=== PATIENT | female | born 1955 | race Caucasian/White ===

== ENCOUNTER 2020-06-25 07:17 | Outpatient (REF) | payer MEDICARE, MEDICAID, SELFPAY ==
[2020-06-25 08:20] LABS: Basophils Absolute Auto 0.1 X10*3/uL (0.0-0.2); Basophils Percent Auto 0.9 % (0-2); Eosinophils Absolute Auto 0.3 X10*3/uL (0.0-0.4); Eosinophils Percent Auto 4.5 % (0-4); Hematocrit 45.2 % (37-47); Hemoglobin 14.9 g/dl (12.0-16.0); Imm Gran Abs Auto 0.02 X10*3/uL (0.00-0.03); Imm Gran Pct Auto 0.3 % (0.0-0.4); Lymphocytes Absolute Auto 1.7 X10*3/uL (1.2-4.9); MANUAL DIFF FLAG NO; Mean Corpuscular Hemoglobin 30.9 pg (27.0-33.0); Mean Corpuscular Volume 93.8 fL (80-98); Mean Platelet Volume 9.8 fL (9.4-12.3); Monocytes Absolute Auto 0.6 X10*3/uL (0.1-1.2); Monocytes Percent Auto 8.2 % (2-11); Neutrophils Absolute Auto 4.2 X10*3/uL (2.0-8.3); Neutrophils Percent Auto 61.1 % (45-73); Platelet Count 194 X10*3/uL (160-400); Red Blood Count 4.82 X10*6/uL (4.20-5.50); Red Cell Distribution Width 13.1 % (11.0-16.0); White Blood Count 6.9 X10*3/uL (4.8-10.8)
[2020-06-25 08:42] LABS: Alanine Aminotransferase 12 U/L (0-31); Albumin Level 4.4 g/dL (3.5-5.0); Alkaline Phosphatase 68 U/L (39-117); Anion Gap 11 (12-20); Aspartate Amino Transferase 16 U/L (5-31); Bilirubin Total 0.5 mg/dL (0.0-1.0); Blood Urea Nitrogen 11 mg/dL (9-16); Carbon Dioxide 29 mmol/L (22-29); Chloride 103 mmol/L (96-108); Cholesterol 226 mg/dL; Estimated Glomerular Filt Rate > 60; Glucose Fasting 95 mg/dL (60-99); HDL Cholesterol 52 mg/dL; LDL Cholesterol Calculated 161 mg/dl; Potassium 4.4 mmol/l (3.3-5.1); Sodium 139 mmol/L (135-145); Total Protein 6.8 g/dL (6.5-8.0); Triglycerides 67 mg/dL
[2020-06-25 09:04] LABS: Thyroid Stimulating Hormone 0.84 uIU/mL (0.32-4.0); Vitamin D 25-OH Total 27.6 ng/mL (>30)
== END 2020-06-25 07:18 | disposition home or self-care (01) ==
LOC: HO.LAB 07:17
PROVIDERS: PCP Internal Medicine; Visit Provider Internal Medicine
DX: E78.00 Pure hypercholesterolemia, unspecified (principal); F32.9 Major depressive disorder, single episode, unspecified; Z85.118 Personal history of other malignant neoplasm of bronchus and lung; E55.9 Vitamin D deficiency, unspecified
CPT/HCPCS: 36415; 80053; 80061; 82306; 84443; 85025

== ENCOUNTER 2020-10-20 14:45 | Outpatient (REF) | payer MEDICARE, MEDICAID, SELFPAY ==
[2020-10-20 15:24] LABS: Glucose Urine UA NEG (NEG); Leukocyte Esterase Urine NEG (NEG); Nitrite Urine NEG (NEG); PH 5.5 (5.0-8.0); Specific Gravity - Urine <= 1.005 (1.005-1.025); Urine Blood 1+ (NEG); Urine Ketones NEG (NEG); Urine Protein NEG (NEG-TRACE)
[2020-10-20 15:25] LABS: Appearance Urine CLEAR; Color Urine YELLOW
[2020-10-20 15:39] LABS: Bacteria Urine 1+ /LPF; RBC Urine 0-2 /HPF (0); Squamous Epithelial Cell Urine 1+ /LPF; WBC Urine 0 /HPF (0-4)
[2020-10-20 16:00] LABS: Hematocrit 42.2 % (37-47); Mean Corpuscular HGB Conc 33.2 g/dl (31.0-35.0); Mean Corpuscular Hemoglobin 30.8 pg (27.0-33.0); Mean Corpuscular Volume 92.7 fL (80-98); Mean Platelet Volume 9.8 fL (9.4-12.3); Platelet Count 206 X10*3/uL (160-400); Red Blood Count 4.55 X10*6/uL (4.20-5.50); Red Cell Distribution Width 13.7 % (11.0-16.0); White Blood Count 8.2 X10*3/uL (4.8-10.8)
[2020-10-20 16:26] LABS: Anion Gap 13 (12-20); Blood Urea Nitrogen 11 mg/dL (9-16); Calcium 9.5 mg/dL (8.4-10.2); Carbon Dioxide 30 mmol/L (22-29); Chloride 100 mmol/L (96-108); Estimated Glomerular Filt Rate > 60; Glucose Random 88 mg/dL (60-115); Potassium 4.4 mmol/L (3.3-5.1); Sodium 139 mmol/L (135-145)
== END 2020-10-20 14:46 | disposition home or self-care (01) ==
LOC: HO.LAB 14:45
PROVIDERS: PCP Internal Medicine; Visit Provider Internal Medicine
DX: R03.0 Elevated blood-pressure reading, without diagnosis of hypertension (principal)
CPT/HCPCS: 36415; 80048; 81001; 85027

== ENCOUNTER 2022-02-23 12:22 | Outpatient (REF) | payer MEDICARE, MEDICAID, SELFPAY ==
--- NOTE | ~2022-02-23 | MM_ITS ---
EXAMINATION: MM SCREENING DIGITAL BREAST TOMOSYNTHESIS, BILATERAL CLINICAL INFORMATION: Screening. Asymptomatic. The lifetime risk of breast cancer based on the Tyrer-Cuzick Model is 10%. COMPARISON: Mammography: 04/21/2020, 04/16/2019, 04/10/2018 TECHNIQUE: Digital breast tomosynthesis is performed in both the craniocaudal and mediolateral oblique views along with computer-aided detection (CAD). Synthesized 2D images are generated from the tomosynthesis. FINDINGS: There are scattered areas of fibroglandular density (ACR BI-RADS breast composition Category b). There are no significant masses, abnormal calcifications, or other abnormalities. Parenchymal pattern is similar to prior studies. The axilla and skin contours are unremarkable. MM/MM tomosynthesis screening BI IMPRESSION: No mammographic evidence of malignancy. ASSESSMENT: BI-RADS 1: Negative RECOMMENDATION: Routine annual mammography screening. This patient's information was entered into a reminder system with a target due date for their next mammogram.
== END 2022-02-23 12:23 | disposition home or self-care (01) ==
LOC: HO.MAMMO 12:22
PROVIDERS: PCP Internal Medicine; Visit Provider Internal Medicine
DX: Z12.31 Encounter for screening mammogram for malignant neoplasm of breast (principal)
CPT/HCPCS: 77063; 77067

== ENCOUNTER 2022-05-20 06:10 | Outpatient (REF) | payer MEDICARE, MEDICAID, SELFPAY ==
[2022-05-20 06:17] LABS: MANUAL DIFF FLAG NO
[2022-05-20 07:23] LABS: Basophils Absolute Auto 0.1 X10*3/uL (0.0-0.2); Basophils Percent Auto 0.5 % (0-2); Eosinophils Absolute Auto 0.4 X10*3/uL (0.0-0.4); Eosinophils Percent Auto 3.7 % (0-4); Hematocrit 46.1 % (37.0-47.0); Imm Gran Abs Auto 0.02 X10*3/uL (0.00-0.03); Imm Gran Pct Auto 0.2 % (0.0-0.4); Lymphocytes Absolute Auto 2.5 X10*3/uL (1.2-4.9); Lymphocytes Percent Auto 26.3 % (20-40); Mean Corpuscular HGB Conc 34.7 g/dl (31.0-35.0); Mean Corpuscular Volume 92.2 fL (80.0-98.0); Monocytes Absolute Auto 0.8 X10*3/uL (0.1-1.2); Monocytes Percent Auto 8.6 % (2-11); Neutrophils Absolute Auto 5.9 x10*3/uL (2.0-8.3); Neutrophils Percent Auto 60.7 % (45-73); Platelet Count 181 X10*3/uL (160-400); Red Cell Distribution Width 13.6 % (11.0-16.0); White Blood Count 9.7 X10*3/uL (4.8-10.8)
[2022-05-20 07:33] LABS: Appearance Urine Cloudy; Color Urine Yellow; Glucose Urine UA Negative (Negative); Leukocyte Esterase Urine Negative (Negative); Nitrite Urine Negative (Negative); PH 6.5 (5.0-9.0); UMIC TRIGGER UACC YES; Urine Blood Trace (Negative); Urine Ketones Negative (Negative); Urine Protein Negative (Neg-Trace)
[2022-05-20 07:38] LABS: Bacteria Urine None Seen (None Seen); Hyaline Casts Urine 0-2 /LPF (0-2); Squamous Epithelial Cell Urine 0-2 /HPF (0-2); WBC Urine 0-5 /HPF (0-5)
[2022-05-20 07:51] LABS: Alanine Aminotransferase 12 U/L (0-31); Albumin Level 4.5 g/dL (3.5-5.0); Alkaline Phosphatase 69 U/L (39-117); Anion Gap 16 (12-20); Aspartate Amino Transferase 17 U/L (5-31); Bilirubin Total 0.4 mg/dL (0.0-1.0); Blood Urea Nitrogen 13 mg/dL (9-16); Calcium 9.7 mg/dL (8.4-10.2); Carbon Dioxide 29 mmol/L (22-29); Chloride 101 mmol/L (96-108); Cholesterol 302 mg/dL; Estimated Glomerular Filt Rate > 60; Glucose Random 94 mg/dL (60-115); HDL Cholesterol 59 mg/dL; LDL Cholesterol Calculated 225 mg/dl; Potassium 4.5 mmol/L (3.3-5.1); Sodium 141 mmol/L (135-145); Total Protein 7.3 g/dL (6.5-8.0); Triglycerides 90 mg/dL
[2022-05-20 08:11] LABS: Free T4 (Free Thyroxine) 1.07 ng/dL (0.71-1.85); Thyroid Stimulating Hormone 1.85 uIU/mL (0.32-4.0); Vitamin D 25-OH Total 33.6 ng/mL (>30)
== END 2022-05-20 06:11 | disposition home or self-care (01) ==
LOC: HO.LAB 06:10
PROVIDERS: PCP Internal Medicine; Visit Provider Internal Medicine
DX: J44.9 Chronic obstructive pulmonary disease, unspecified (principal); E78.00 Pure hypercholesterolemia, unspecified; R53.81 Other malaise; R53.83 Other fatigue
CPT/HCPCS: 36415; 80053; 80061; 81001; 81003; 82306; 84439; 84443; 85025

== ENCOUNTER 2022-09-24 14:59 | Outpatient (REF) | payer MEDICARE, MEDICAID, SELFPAY ==
[2022-09-24 16:46] LABS: Anion Gap 11 (12-20); Blood Urea Nitrogen 12 mg/dL (9-16); Calcium 9.6 mg/dL (8.4-10.2); Carbon Dioxide 34 mmol/L (22-29); Chloride 98 mmol/L (96-108); Estimated Glomerular Filt Rate > 60; Glucose Random 96 mg/dL (60-115); Potassium 4.5 mmol/L (3.3-5.1); Sodium 138 mmol/L (135-145)
== END 2022-09-24 15:00 | disposition home or self-care (01) ==
LOC: HO.LAB 14:59
PROVIDERS: PCP Internal Medicine; Visit Provider Internal Medicine
DX: I10 Essential (primary) hypertension (principal)
CPT/HCPCS: 36415; 80048

== ENCOUNTER 2022-10-19 07:57 | Day surgery (SDC) | payer MEDICARE, MEDICAID, SELFPAY ==
--- NOTE | 2022-10-18 14:04 | P.CONAN_ITS ---
Documented by User: Kerline Correia NP 10/18/22 14:04 HPI - Anesthesia Eval Consult details Narrative: 67yo F for Colonoscopy PMFSH Past Medical History Medical History Anxiety and depression COPD (chronic obstructive pulmonary disease) HTN (hypertension) Hyperlipidemia IBS (irritable bowel syndrome) Surgical History Surgical History H/O colonoscopy S/P lobectomy of lung Social History Social History Patient Tobacco Use Status: Former Tobacco user Tobacco use type: Cigarette Smoked in Last 30 Days: No Use of substances other than those prescribed or required for medical reasons: No Are you DNR?: No Advance Directives: No Advance Directives Information Provided: Yes Meds Allergies Allergy/AdvReac Type Severity Reaction Status Date / Time No Known Allergies Allergy Verified 10/19/22 08:24 Home Medications Medication Instructions Recorded Confirmed Last Taken Type bupropion HCl 150 mg 24 hr tablet, 150 mg PO DAILY 10/18/22 10/19/22 Unknown History extended release clonazepam 1 mg tablet 1 mg PO TID PRN Anxiety 10/18/22 10/19/22 Unknown History levalbuterol tartrate 45 2 puff inhalation Q4H PRN wheezing 10/18/22 10/19/22 Unknown History mcg/actuation aerosol inhaler lisinopril 10 mg tablet 10 mg PO DAILY 10/18/22 10/19/22 10/19/22 History metoclopramide HCl 10 mg tablet 10 mg PO DAILY PRN Nausea 10/18/22 10/19/22 Unknown History quetiapine 25 mg tablet 10 mg PO DAILY 10/18/22 10/19/22 Unknown History sumatriptan succinate 100 mg tablet 100 mg PO DIRECTED 10/18/22 10/19/22 Unknown History umeclidinium 62.5 mcg/actuation 1 inh inhalation DAILY 10/18/22 10/19/22 10/19/22 History blister powder for inhalation (Incruse Ellipta) Exam Exam Date and Time: October 18, 2022 1404 Pertinent Lab Results Pertinent Lab Results: Laboratory Tests 05/20/22 09/24/22 06:16 15:28 WBC 9.7 Hgb 16.0 Hct 46.1 Plt Count 181 Sodium 138 Potassium 4.5 Chloride 98 Carbon Dioxide 34 H BUN 12 Creatinine 0.72 Assessment and Plan Assessment Anesthesia Assessment: Chart Reviewed Documented by User: Antonina Benitez MD 10/19/22 09:48 [facility] Past Medical History Medical History Anxiety and depression COPD (chronic obstructive pulmonary disease) HTN (hypertension) Hyperlipidemia IBS (irritable bowel syndrome) Family History Family history of problems with anesthesia: No Surgical History Surgical History H/O colonoscopy S/P lobectomy of lung History of Problems with Anesthesia: No Social History Social History Patient Tobacco Use Status: Former Tobacco user Tobacco use type: Cigarette Smoked in Last 30 Days: No Use of substances other than those prescribed or required for medical reasons: No Are you DNR?: No Advance Directives: No Advance Directives Information Provided: Yes Meds Allergies Allergy/AdvReac Type Severity Reaction Status Date / Time No Known Allergies Allergy Verified 10/19/22 08:24 Home Medications Medication Instructions Recorded Confirmed Last Taken Type bupropion HCl 150 mg 24 hr tablet, 150 mg PO DAILY 10/18/22 10/19/22 Unknown History extended release clonazepam 1 mg tablet 1 mg PO TID PRN Anxiety 10/18/22 10/19/22 Unknown History levalbuterol tartrate 45 2 puff inhalation Q4H PRN wheezing 10/18/22 10/19/22 Unknown History mcg/actuation aerosol inhaler lisinopril 10 mg tablet 10 mg PO DAILY 10/18/22 10/19/22 10/19/22 History metoclopramide HCl 10 mg tablet 10 mg PO DAILY PRN Nausea 10/18/22 10/19/22 Unknown History quetiapine 25 mg tablet 10 mg PO DAILY 10/18/22 10/19/22 Unknown History sumatriptan succinate 100 mg tablet 100 mg PO DIRECTED 10/18/22 10/19/22 Unknown History umeclidinium 62.5 mcg/actuation 1 inh inhalation DAILY 10/18/22 10/19/22 10/19/22 History blister powder for inhalation (Incruse Ellipta) Exam Height,Weight and Vital Signs: Height 5 ft 4 in Weight 68.039 kg Vital Signs Temp Pulse Resp BP Pulse Ox O2 Del Method 10/19/22 08:49 98.4 F 75 16 125/76 95 Room Air Airway Mallampati Class: II TM Dist: >3cm Neck ROM: Full Loose/Missing/Broken Teeth: No (Denies broken,loose,missing teeth) Heart: RRR Lungs: CTAB Assessment and Plan Final Anesthetic Review Family History of Problems with Anesthesia: No History of Problems with Anesthesia: No NPO: Yes ASA Class: II Final Preanesthetic Review: No Changes in Pt Med Stat, Meds/Allgs Chart Reviewed, Consent Obtained/Reviewed and Anes Risks/Benef Reviewed Patient Risk: Low Procedure Risk: Low Assessment/Block/Sedation in SS: Assess/Block/Sedation-SS Anesthetic Plan Anesthetic Plan: MAC: Disposition: Standard PACU
--- OUTSIDE RECORDS SUMMARY | 2022-10-19 07:59 | XMS_ITS | Continuity of Care Document ---
Author Name Unknown Organization [facility] Address [address] [place] [address] [address], [address] [place] [address]- Care Team Providers Care Sueding Machine Tender Name Role Phone Alin Ceja MD Primary Care Physician [phone] Encounter [facility] [place] Date(s): 08/30/19 - 11/08/19 [facility] [address] [place] [address], [address] [place] [address]- [facility] Attending Physician: Jennifer Brasher NP Referring Physician: Alin Ceja MD Allergies, Adverse Reactions, Alerts Substance Reaction Severity Status NKA Active Medications KLONopin Tablet = 1 mg, By Mouth, 2 times a day, PRN Anxiety, 0 Refills, Maintenance, 07/01/11 11:17:01 Start Date: 07/01/11 Status: Ordered nicotine 14 mg/24 hr transdermal film, extended release 1 patch, Daily, 0 Refills, Maintenance, 08/04/16 8:36:19 Start Date: 08/04/16 Status: Ordered QUEtiapine 25 mg oral tablet 25 mg, 1, tablet, By Mouth, Daily, # 30 tablet, Refills 0, Tot. Refills 0, Maintenance, 07/01/16 13:16:36, Do Not Route Start Date: 07/01/16 Status: Ordered Spiriva Respimat 2.5 mcg/inh inhalation aerosol 2 puffs, Inhalation, Daily, # 4 Gm, 1 Refills, Maintenance, 07/01/16 14:19:00, Aerosol Start Date: 07/01/16 Status: Ordered Wellbutrin SR 150 mg oral tablet, extended release 1 tablet = 150 mg, By Mouth, Daily, 0 Refills, Maintenance Start Date: 07/01/11 Status: Ordered Xopenex HFA 45 mcg/inh inhalation aerosol 1 puffs, Inhalation, Every 6 hours, PRN Wheezing/Shortness of Breath, # 15 Gm, 1 Refills, Maintenance, 07/01/16 14:18:00, Aerosol Start Date: 07/01/16 Status: Ordered Problem List Condition Effective Dates Status Health Status Inform ant COPD (chronic obstructive pu lmonary disease)(Confirmed) Active Former smoker(Confirmed) Active Hypertension(Confirmed) Active Anxiety and depression(Confirmed) Active Social History Social History Type Response Smoking Status Former smoker; Type: Cigarettes; Other: quit smoking 05/2016, used to smoke 3/4 ppd x's 20+ yrs; entered on: 02/24/17 Sex
--- OUTSIDE RECORDS SUMMARY | 2022-10-19 07:59 | XMS_ITS | Continuity of Care Document ---
Author Name Unknown Organization [facility] Address Unknown Care Team Providers Care Model And Pattern Supervisor Name Role Phone Alin Ceja MD Primary Care Physician [place] [facility] [place] - 02/04/22 [facility] Allergies, Adverse Reactions, Alerts No Known Allergies Medications KLONopin Tablet = 1 mg, By [...]
--- OUTSIDE RECORDS SUMMARY | 2022-10-19 07:59 | XMS_ITS | Continuity of Care Document ---
Author Name Unknown Organization [facility] Address [address] [place] [address]- Care Team Providers Care Pharmacy Resident Name Role Phone Alin Ceja MD Primary Care Physician [phone] Encounter [facility] [place] Date(s): 12/07/19 - 02/07/[address] [address]- [facility] Attending Physician: Jennifer Brasher NP Admitting Physician: Jennifer Brasher NP Referring Physician: Jennifer Brasher NP Allergies, Adverse Reactions, Alerts Substance Reaction Severity [...]
--- OUTSIDE RECORDS SUMMARY | 2022-10-19 07:59 | XMS_ITS | Continuity of Care Document ---
Author Name Unknown Organization [facility] Address [address] [place] [address]- Care Team Providers Care Wet Machine Tender Name Role Phone Alin Ceja MD Primary Care Physician [phone] [place] [facility] [place]13/[place] - 11/02/[address] [address]- [facility] Attending Physician: Jennifer Brasher NP Admitting Physician: [...]
--- OUTSIDE RECORDS SUMMARY | 2022-10-19 07:59 | XMS_ITS | Continuity of Care Document ---
Author Name Unknown Organization [facility] Address Unknown Care Team Providers Care Mba Internship Name Role Phone Alin Ceja MD Primary Care Physician [phone] Encounter [facility] [place] Date(s): 12/23/21 - 01/22/22 [facility] Allergies, Adverse Reactions, Alerts No [...]
--- OUTSIDE RECORDS SUMMARY | 2022-10-19 07:59 | XMS_ITS | Continuity of Care Document ---
Author Name Unknown Organization [facility] Address [address] [place] [address] [address], [address] [place] [address]- Care Team Providers Care Certifier Name Role Phone Marcial BUNCH, Alin Primary Care Physician Encounter [facility] [place] Date(s): 01/10/20 - 01/17/20 [facility] [address] [place] [address] Drive, [address] [place] [address]- [facility] Attending Physician: Jennifer Brasher NP Allergies, Adverse Reactions, [...]
--- OUTSIDE RECORDS SUMMARY | 2022-10-19 07:59 | XMS_ITS ---
Author Name Lambert Preston Jr Address [address] [place] [address] Organization [facility] Address [address] [place] [address] Care Team Providers Care Physician Office Assistant Name Role Phone Lambert Preston Jr Unavailable PROBLEMS Type Condition ICD9-CM Code HMS44-BO Code Onset Dates Condition Status SNOMED Code Problem Irritable bowel syndrome, unspecified type K58.9 Active 44021110 Problem Colon cancer screening Z12.11 Active 197777733 ALLERGIES No Known Allergies ENCOUNTERS Encounter Location Date Diagnosis [facility] [place] [address] [place], [place] [id number] Sep, [facility] [address] [place] [id number] Aug, Colon cancer screening Z12.11 and Irritable bowel syndrome, unspecified type K58.9 IMMUNIZATIONS No Known Immunizations SOCIAL HISTORY Qualifiers Date Never Smoker REASON FOR REFERRAL FUNCTIONAL STATUS PLAN OF CARE Activity Details VITAL SIGNS Weight 152 lbs 2022-09-06 Height 64 in 2022-09-06 BMI 26.09 kg/m2 2022-09-06 Temperature 99.6 degrees Fahrenheit Blood pressure systolic 000 mm Hg Blood pressure diastolic 00 mm Hg 2022-08 MEDICATIONS Medication Instructions Dosage Frequency Start Date End Date Duration Status KlonoPIN 1 MG Orally Once a day 1 tablet 24h Active Wellbutrin SR 150 MG Orally Once a day 1 tablet in the morning 24h 30 day(s) Active clonazePAM 1 MG null Diagnosis Unavailable 30 Active QUEtiapine Fumarate 25 MG null Diagnosis Unavailable 30 Active SUMAtriptan Succinate 100 MG null Diagnosis Unavailable 30 Active Incruse Ellipta 62.5 MCG/ACT Inhalation Once a day 1 puff 24h Aug, Active MiraLax (colon prep) 8.3 ounce ((238) grams orally begin at 5:00 p.m. the day before the procedure mixed with Gatorade or Crystal Light Aug, 1 day Active SEROquel 25 MG Orally Once a day 1 tablet at bedtime 24h 30 day(s) Active Metoclopramide HCl 10 MG 30 Active Lisinopril 10 MG Orally Once a day 1 tablet 24h Aug, 30 day(s) Active PROCEDURES Procedure Date Ordered Result Body Site PATIENT NOT ELIG D/T ACTIVE DX HTN Sep 06, 2022 Pt scrn tbco id as non user Sep 06, 2022 DOC MEDS VERIFIED W/PT OR RE Sep 06, 2022 COLORECTAL CA SCREEN DOC REV Sep 06, 2022 RESULTS No Results REASON FOR VISIT screening, Patient presents today for a SCREENING COLON Insurance Providers Health Insurance Type Health Plan Insurance Address Health Plan Insurance Phone Health Plan Insurance Name Health Plan Coverage Dates Member ID Patient Relationship to Subscriber Patient Address Patient Phone Patient Name Patient Date of Subscriber ID Subscriber Name Subscriber Date of Group No MED[place] OF [place] [address] [place] [address] MEDICAID OF [place] [facility] ELYSE DORAN [id number] [place]ARE OF [place] [address] [place] [address] MED[place]ARE OF [place] self ELYSE DORAN [id number]
--- OUTSIDE RECORDS SUMMARY | 2022-10-19 07:59 | XMS_ITS | Continuity of Care Document ---
Author Name Unknown Organization [facility] Address [address] [place] [address] [address], [address] [place] [address]- Care Team Providers Care Telecommunicator Name Role Phone Alin Ceja MD Primary Care Physician [place] [facility] [place] 02/09/20 [facility] [address] [place] [address], [address] [place] [address]- [facility] Attending Physician: Steven Doyle Admitting Physician: AdmSteven olivo Referring Physician: AdmtrSteven Allergies, Adverse Reactions, Alerts Substance Reaction Severity [...]
--- OUTSIDE RECORDS SUMMARY | 2022-10-19 07:59 | XMS_ITS | Continuity of Care Document ---
Author Name Unknown Organization [facility] Address [address] [facility] [address] [place] [address]- Care Team Providers Care Snack Steward Name Role Phone Marcial BUNCH, Alin Primary Care Physician [phone] Encounter 01/08/20 - 01/15/20 [facility] [address], [facility] [address] [place] [address]- [phone] Attending Physician: Jennifer Brasher NP Admitting Physician: [...]
[2022-10-19 08:22] VITALS: BMI 25.7
[2022-10-19 08:49] VITALS: BP 125/76; PULSE 75; RESP 16; TEMP 36.9; O2SAT 95
[2022-10-19] MEDS: Lactated Ringers 1,000 ML 100 ML IVCONT (09:01)
--- NOTE | 2022-10-19 10:15 | MHC.SHP ---
Pre-Procedural Eval Section A Date of Service: 10/19/22 Section B Chief Complaint: screening Details of Present Illness: see H&P no changes Relevant Family History (Specify if Yes): No Relevant Social History: None Present Medications: see Short Stay Collaborative assessment Medical History: No relevant PMH History of Previous Operations: No relevant previous surgery Allergies: Allergies Allergy/AdvReac Type Severity Reaction Status Date / Time No Known Allergies Allergy Verified 10/19/22 08:24 Review of Systems Sugical H&P ROS: Negative: Constitution, Cardiovascular, Respiratory, Neurological, Psychiatric, Hem-Onc, Allergic/Immunologic, Gastrointestinal, Genitourinary, Musculoskeletal, Integumentary, Endocrine and Eyes/Ears/Nose/Throat Exam Surgical H&P Exam: Normal: HEENT, Normal: Heart, Normal: Lungs, Normal: Extremities, Normal: Abdomen, Normal: Skin and Normal: Neurological Plan Diagnosis/Plan: Unchanged I have reviewed the history and physical and performed a pertinent physical examination on my patient. No changes have occurred unless specified. Time Spent With Patient Time: Total time managing care of this patient today ____ minutes.
[2022-10-19 10:17] VITALS: BP 104/63; PULSE 81; RESP 16; TEMP 36.4; O2SAT 97
[2022-10-19 10:33] VITALS: BP 145/80; PULSE 76; RESP 18; TEMP 36.1; O2SAT 98
--- NOTE | 2022-10-19 10:55 | OP_ITS ---
DATE OF SERVICE: 10/19/2022 SURGEON: Lambert Preston MD INDICATIONS: Colon cancer screening. PREOPERATIVE DIAGNOSIS: POSTOPERATIVE DIAGNOSIS: PROCEDURE PERFORMED: Colonoscopy to the terminal ileum. ESTIMATED BLOOD LOSS: COMPLICATIONS: ANESTHESIA: Monitored anesthesia care. ASSISTANTS: SPECIMENS: DESCRIPTION OF PROCEDURE: A history and physical performed. The risks and benefits of the procedure were explained to the patient. Informed consent was obtained. The patient placed in the left lateral decubitus position. The procedure was performed on 10/19/2022. A digital rectal exam was performed and found to be normal. The Olympus pediatric video colonoscope was introduced into the rectum and advanced to the cecum without difficulty. The cecum was identified by transillumination, palpation, and identification of the ileocecal valve. Examination was performed. The scope was removed. She tolerated the procedure well and was taken to recovery room in stable condition. FINDINGS: The terminal ileum was examined and appeared normal. The visualized colonic mucosa was normal. The quality of prep was good. Two polyps were identified and removed with biopsy forceps. Both were less than 5 mm. These were located at 35 cm and in the rectum. Retroflexed examination showed some mucosal changes suspicious for possible condyloma. Biopsies were obtained from the abnormal tissue. This measured approximately 5-7 mm. IMPRESSION: Colon polyps. RECOMMENDATION: Follow up the biopsy results. MD JUDE Lezama/CHANTELLE / [id number]
== END 2022-10-19 11:01 | disposition home or self-care (01) ==
PROVIDERS: PCP Internal Medicine; Visit Provider Internal Medicine Gastroenterology
PROC: 0DJD8ZZ Inspection of Lower Intestinal Tract, Via Natural or Artificial Opening Endoscopic (ICD-10-PCS; CPT 45378; principal; 2022-10-19 09:20)
DX: Z12.11 Encounter for screening for malignant neoplasm of colon (principal); K63.5 Polyp of colon; K62.1 Rectal polyp; K62.82 Dysplasia of anus; K58.9 Irritable bowel syndrome, unspecified; I10 Essential (primary) hypertension; J44.9 Chronic obstructive pulmonary disease, unspecified; E78.5 Hyperlipidemia, unspecified; F41.8 Other specified anxiety disorders; Z79.51 Long term (current) use of inhaled steroids; Z79.899 Other long term (current) drug therapy; Z87.891 Personal history of nicotine dependence
CPT/HCPCS: 45380; 88305; 88342; 88360

== ENCOUNTER → 2022-11-10 14:13 | Outpatient (BNVA) | payer MEDICARE, MEDICAID, SELFPAY | PROVIDERS: PCP Internal Medicine; Referring Provider Internal Medicine Gastroenterology; Visit Provider Surgery | DX: K62.82 Dysplasia of anus (principal) | CPT/HCPCS: 46600; 99202 ==

== ENCOUNTER 2023-03-14 13:13 | Outpatient (REF) | payer MEDICARE, MEDICAID, SELFPAY | END 2023-03-14 13:14 | disposition home or self-care (01) | LOC: HO.MAMMO 13:13 | PROVIDERS: PCP Internal Medicine; Visit Provider Internal Medicine | DX: Z12.31 Encounter for screening mammogram for malignant neoplasm of breast (principal) | CPT/HCPCS: 77063; 77067 ==

== ENCOUNTER → 2023-03-14 13:30 | Outpatient (BNV) | payer MEDICARE, MEDICAID, SELFPAY | PROVIDERS: PCP Internal Medicine; Visit Provider Radiology Diagnostic Radiology | DX: Z12.31 Encounter for screening mammogram for malignant neoplasm of breast (principal) | CPT/HCPCS: 77063; 77067 ==

== ENCOUNTER 2023-05-09 12:44 | Outpatient (AMB) | payer MEDICARE, MEDICAID, SELFPAY ==
[2023-05-09 12:49] VITALS: BP 126/88; PULSE 78; BMI 26.9
--- NOTE | 2023-05-09 12:49 | A.OFFVIS_ITS ---
Intake Vital Signs 05/09/23 12:49 Height 5 ft 4 in Weight 157 lb BMI 26.9 BP 126/88 Blood Pressure Location Rt brachial Position Sitting Pulse 78 Intake Visit Reasons: 6 month follwo up, anal condyloma Intake Note: This patient presents for a six month follow-up assessment for anal condyloma. Patient c/o; reports no changes or complaints at this time. 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 Preston. I had seen her last October,. Anoscopy had shown what appeared to be a very small papilloma in the anal canal but she did not want to proceed with excision at that time and wanted to be re- examined for surveillance She currently denies significant complaints. She denies any bleeding or pain. Feels well overall. [facility] Medical History AIN grade I HTN (hypertension) Hyperlipidemia IBS (irritable bowel syndrome) Anxiety and depression COPD (chronic obstructive pulmonary disease) Surgical History S/P lobectomy of lung H/O colonoscopy Social History Patient Tobacco Use Status: Former Tobacco user Tobacco use type: Cigarette Review of Systems Const Denies chills and Denies fever(s) Card Denies chest pain, Denies dyspnea and Denies dyspnea on exertion Resp Denies cough, Denies dyspnea and Denies dyspnea on exertion GI Denies hematochezia and Denies change in bowel habits Denies hematuria Musc Denies back pain and Denies limited range of motion Neuro Denies focal weakness and Denies convulsions Psych Denies depression and Denies mood swings Physical Exam Vital Signs: Last Vital Signs Pulse 78 05/09/23 12:49 BP 126/88 05/09/23 12:49 BMI result Body Mass Index 26.9 Const General: comfortable and no acute distress Resp Effort & Inspection: normal respiratory effort Cardio Rate: regular rate GI Other: Rectal exam shows no perianal lesions, anoscopy done Palpation (GI): Soft to palpation and nontender Office Procedures Anoscopy She was in mirela-knife position. The anoscope was gently inserted. A full examination of the anal canal was done. She did have small internal and external hemorrhoidal columns. On the right side of the anal canal just at the level of the dentate line was note of 2 small papillomatous appearing lesions, each about 3-4 mm in size. I cauterized both of these using silver nitrate sticks. There were no other lesions. 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 I was able to cauterize these with silver nitrate sticks as described above. I told her that I will see her again in the office in about 6 months to examine her and repeat her anoscopy. She understands the plan as above. She says that she would like to hold off on any exam under anesthesia in the OR as best as possible. Coding Level of Care Code Est Pt Level 3 (36887) Diagnoses AIN grade I K62.82 CPT Codes Details - CPT: 16420-Dulrecpu ([id number]) Skin Cauter - Destruction: 22026- Chemical Cautery, Granulation Tissue ([id number])
== END 2023-05-09 13:03 | disposition home or self-care (01) ==
PROVIDERS: PCP Internal Medicine; Visit Provider Surgery
DX: K62.82 Dysplasia of anus (principal); K62.9 Disease of anus and rectum, unspecified
CPT/HCPCS: 17250; 46600; 99213

== ENCOUNTER → 2023-05-09 12:44 | Outpatient (BNVA) | payer MEDICARE, MEDICAID, SELFPAY | PROVIDERS: PCP Internal Medicine; Visit Provider Surgery | DX: K62.82 Dysplasia of anus (principal) | CPT/HCPCS: 17250; 46600; 99212 ==

== ENCOUNTER 2023-05-25 06:53 | Outpatient (REF) | payer MEDICARE, MEDICAID, SELFPAY ==
[2023-05-25 07:08] LABS: MANUAL DIFF FLAG NO
[2023-05-25 08:15] LABS: Basophils Absolute Auto 0.1 X10*3/uL (0.0-0.2); Eosinophils Absolute Auto 0.3 X10*3/uL (0.0-0.4); Eosinophils Percent Auto 3.8 % (0-4); Hematocrit 49.4 % (37.0-47.0); Hemoglobin 16.3 g/dl (12.0-16.0); Imm Gran Abs Auto 0.01 X10*3/uL (0.00-0.03); Imm Gran Pct Auto 0.1 % (0.0-0.4); Lymphocytes Absolute Auto 1.9 X10*3/uL (1.2-4.9); Lymphocytes Percent Auto 25.7 % (20-40); Mean Corpuscular Hemoglobin 30.8 pg (27.0-33.0); Mean Corpuscular Volume 93.4 fL (80.0-98.0); Mean Platelet Volume 9.6 fL (9.4-12.3); Monocytes Absolute Auto 0.6 X10*3/uL (0.1-1.2); Monocytes Percent Auto 8.3 % (2-11); Neutrophils Absolute Auto 4.5 x10*3/uL (2.0-8.3); Neutrophils Percent Auto 61.1 % (45-73); Platelet Count 280 X10*3/uL (160-400); Red Blood Count 5.29 X10*6/uL (4.20-5.50); Red Cell Distribution Width 12.7 % (11.0-16.0); White Blood Count 7.3 X10*3/uL (4.8-10.8)
[2023-05-25 08:22] LABS: Appearance Urine Clear; Color Urine Yellow; Glucose Urine UA Negative (Negative); Leukocyte Esterase Urine Negative (Negative); Nitrite Urine Negative (Negative); Urine Blood Negative (Negative); Urine Ketones Negative (Negative); Urine Protein Negative (Neg-Trace)
[2023-05-25 08:25] LABS: Bacteria Urine None Seen (None Seen); Hyaline Casts Urine 0-2 /LPF (0-2); Squamous Epithelial Cell Urine 0-2 /HPF (0-2); WBC Urine 0-5 /HPF (0-5)
[2023-05-25 08:59] LABS: Estimated Average Glucose 97 mg/dL
[2023-05-25 09:00] LABS: Alanine Aminotransferase 9 U/L (0-31); Albumin Level 4.2 g/dL (3.5-5.0); Alkaline Phosphatase 86 U/L (39-117); Anion Gap 13 (12-20); Aspartate Amino Transferase 14 U/L (5-31); Bilirubin Total 0.2 mg/dL (0.0-1.0); Blood Urea Nitrogen 5 mg/dL (9-16); Carbon Dioxide 31 mmol/L (22-29); Chloride 99 mmol/L (96-108); Cholesterol 248 mg/dL (<200); Estimated Glomerular Filt Rate > 60; Glucose Random 97 mg/dL (60-115); HDL Cholesterol 45 mg/dL (>40); LDL Cholesterol Calculated 181 mg/dL (<100); Potassium 4.3 mmol/L (3.3-5.1); Sodium 139 mmol/L (135-145); Total Protein 7.7 g/dL (6.5-8.0); Triglycerides 110 mg/dL (<150)
== END 2023-05-25 06:54 | disposition home or self-care (01) ==
LOC: HO.LAB 06:53
PROVIDERS: PCP Internal Medicine; Visit Provider Internal Medicine
DX: E78.00 Pure hypercholesterolemia, unspecified (principal); I10 Essential (primary) hypertension; R35.1 Nocturia; R73.01 Impaired fasting glucose
CPT/HCPCS: 36415; 80053; 80061; 81001; 83036; 84443; 85025

== ENCOUNTER 2023-10-11 13:35 | Outpatient (AMB) | payer MEDICARE, MEDICAID, SELFPAY ==
--- NOTE | 2023-10-11 13:39 | MHC.OFFWIV ---
Intake Vital Signs 10/11/23 13:40 Height 5 ft 4 in Weight 156 lb BMI 26.8 BP 144/88 H Blood Pressure Location Lt brachial Position Sitting Pulse 88 Pulse Source Pulse Oximeter Temp 98.2 F Temp Source Oral Pulse Oximetry (%) 94 Oxygen Delivery Method Room Air Intake Visit Reasons: EP Sinus infection (lobby) Intake Note: pt is here for green mucus drainage and sinus pressure and pain with a cough for about 3 days Patient Tobacco Use Status: Former Tobacco user Allergies No Known Allergies Allergy (Verified 10/11/23 13:43) HPI EP Sinus infection (lobby) HPI Details Patient presents for a sick visit. Reporting symptoms of sinus congestion, sore throat and difficulty swallowing. Low-grade fever. No family member is sick. No recent travel. Patient reports symptoms of malaise and fatigue. [facility] Medical History AIN grade I HTN (hypertension) Hyperlipidemia IBS (irritable bowel syndrome) Anxiety and depression COPD (chronic obstructive pulmonary disease) Surgical History S/P lobectomy of lung H/O colonoscopy Social History Patient Tobacco Use Status: Former Tobacco user Tobacco use type: Cigarette Physical Exam Vital Signs: Last Vital Signs Temp 98.2 F 10/11/23 13:40 Pulse 88 10/11/23 13:40 BP 144/88 H 10/11/23 13:40 Pulse Ox 94 10/11/23 13:40 Oxygen Delivery Method Room Air 10/11/23 13:40 BMI result Body Mass Index 26.8 Const General: cooperative and healthy appearing Nutritional Appearance: well nourished Orientation/consciousness: patient oriented x3 Limitations: no limitations HEENT Head: Yes normal to inspection Eyes General: appearance normal, both eyes and all related structures Neck Neck: Yes normal visual inspection Chest Chest palpation & inspection: normal palpation of entire chest wall Resp Effort & Inspection: normal respiratory effort Neuro General: patient oriented x3 Assessment & Plan Assessment & Plan (1) Upper respiratory tract infection: Code(s): J06.9 - Acute upper respiratory infection, unspecified Plan: Antibiotics ordered. Increase fluid intake. Tylenol for aches and pains. If symptoms worsen, follow-up here for a recheck. Medications: New azithromycin take 500 mg today (day 1), then 250 mg for 4 days (days 2-5) PO 6 tabs 0RF prednisone 60 mg (3 x 20 mg) PO DAILY 9 tabs 0RF Coding Level of Care Code Est Pt Level 3 (87688) Diagnoses Upper respiratory tract infection J06.9
[2023-10-11 13:40] VITALS: BP 144/88; PULSE 88; TEMP 36.8; O2SAT 94; BMI 26.8
== END 2023-10-11 14:48 | disposition home or self-care (01) ==
PROVIDERS: PCP Internal Medicine; Visit Provider Internal Medicine
DX: J06.9 Acute upper respiratory infection, unspecified (principal)
CPT/HCPCS: 99213

== ENCOUNTER 2023-11-09 12:17 | Outpatient (REF) | payer MEDICARE, MEDICAID, SELFPAY ==
[2023-11-09 12:30] LABS: MANUAL DIFF FLAG NO
[2023-11-09 13:31] LABS: Basophils Absolute Auto 0.1 X10*3/uL (0.0-0.2); Basophils Percent Auto 0.7 % (0-2); Eosinophils Absolute Auto 0.4 X10*3/uL (0.0-0.4); Eosinophils Percent Auto 4.8 % (0-4); Hemoglobin 14.9 g/dl (12.0-16.0); Imm Gran Abs Auto 0.03 X10*3/uL (0.00-0.03); Imm Gran Pct Auto 0.4 % (0.0-0.4); Lymphocytes Absolute Auto 2.5 X10*3/uL (1.2-4.9); Mean Corpuscular HGB Conc 33.1 g/dl (31.0-35.0); Mean Corpuscular Hemoglobin 30.5 pg (27.0-33.0); Mean Corpuscular Volume 92.2 fL (80.0-98.0); Monocytes Absolute Auto 0.8 X10*3/uL (0.1-1.2); Monocytes Percent Auto 9.5 % (2-11); Neutrophils Absolute Auto 4.8 x10*3/uL (2.0-8.3); Neutrophils Percent Auto 55.6 % (45-73); Platelet Count 175 X10*3/uL (160-400); Red Blood Count 4.88 X10*6/uL (4.20-5.50); Red Cell Distribution Width 13.7 % (11.0-16.0); White Blood Count 8.5 X10*3/uL (4.8-10.8)
[2023-11-09 14:15] LABS: Alanine Aminotransferase 16 U/L (0-31); Albumin Level 4.1 g/dL (3.5-5.0); Alkaline Phosphatase 74 U/L (39-117); Anion Gap 10 (12-20); Aspartate Amino Transferase 18 U/L (5-31); Bilirubin Total 0.4 mg/dL (0.0-1.0); Blood Urea Nitrogen 10 mg/dL (9-16); Calcium 9.7 mg/dL (8.4-10.2); Carbon Dioxide 32 mmol/L (22-29); Chloride 100 mmol/L (96-108); Cholesterol 225 mg/dL (<200); Estimated Glomerular Filt Rate > 60; Glucose Random 95 mg/dL (60-115); HDL Cholesterol 48 mg/dL (>40); LDL Cholesterol Calculated 160 mg/dL (<100); Potassium 3.8 mmol/L (3.3-5.1); Sodium 138 mmol/L (135-145); Total Protein 6.9 g/dL (6.5-8.0); Triglycerides 89 mg/dL (<150)
[2023-11-09 14:33] LABS: Thyroid Stimulating Hormone 1.25 uIU/mL (0.32-4.0)
== END 2023-11-09 12:18 | disposition home or self-care (01) ==
LOC: HO.LAB 12:17
PROVIDERS: PCP Internal Medicine; Visit Provider Internal Medicine
DX: E78.00 Pure hypercholesterolemia, unspecified (principal); I10 Essential (primary) hypertension; K62.82 Dysplasia of anus
CPT/HCPCS: 36415; 80053; 80061; 84443; 85025; 99212

== ENCOUNTER 2023-11-09 12:36 | Outpatient (AMB) | payer MEDICARE, MEDICAID, SELFPAY ==
--- NOTE | 2023-11-09 12:42 | A.OFFVIS_ITS ---
Intake Vital Signs 11/09/23 12:49 Height 5 ft 4 in Intake Visit Reasons: 6 month follwo up, anal condyloma Intake Note: This patient presents for a six month follow-up , anal condyloma. Pt c/o; reports no complaints. 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 Preston. I had seen her last October,. She is here for surveillance for this. I had last seen her in the office 6 months ago. She currently denies significant complaints. She denies any bleeding or pain. She feels well overall. She does complain of chronic constipation and says that she has irritation of her anus when this happens. [facility] Medical History AIN grade I HTN (hypertension) Hyperlipidemia IBS (irritable bowel syndrome) Anxiety and depression COPD (chronic obstructive pulmonary disease) Surgical History S/P lobectomy of lung H/O colonoscopy Social History Patient Tobacco Use Status: Former Tobacco user Tobacco use type: Cigarette Review of Systems Const Denies chills and Denies fever(s) Card Denies chest pain, Denies dyspnea and Denies dyspnea on exertion Resp Denies cough, Denies dyspnea and Denies dyspnea on exertion GI Denies hematochezia and Denies change in bowel habits Denies hematuria Musc Denies back pain and Denies limited range of motion Neuro Denies focal weakness and Denies convulsions Psych Denies depression and Denies mood swings Physical Exam Const General: comfortable and no acute distress Orientation/consciousness: patient oriented x3 Neck Neck: Yes no lymphadenopathy Resp Auscultation: clear to auscultation bilaterally Cardio Rhythm: regular rhythm GI Other: No perianal lesions rectal exam Palpation (GI): Soft to palpation, nontender and no guarding Neuro General: patient oriented x3 Assessment & Plan Assessment & Plan (1) AIN grade I: Code(s): K62.82 - Dysplasia of anus Plan: Follow-up exam today including anoscopy does not reveal any recurrent lesion. She denies any complaints at this time with regards to her anus. She does admit to being constipated. I will send her prescription for Metamucil. I will see her again in the office in about 6 months and continue with surveillance anoscopy. Coding Level of Care Code Est Pt Level 3 (80466) Diagnoses AIN grade I K62.82
== END 2023-11-09 13:18 | disposition home or self-care (01) ==
PROVIDERS: PCP Internal Medicine; Visit Provider Surgery
DX: K62.82 Dysplasia of anus (principal)
CPT/HCPCS: 99213

== ENCOUNTER 2024-01-12 10:51 | Outpatient (REF) | payer MEDICARE, MEDICAID, SELFPAY ==
[2024-01-12 10:07] VITALS: PULSE 78; RESP 16; O2SAT 94
--- NOTE | 2024-01-12 16:10 | PFT_ITS ---
Flows: FEV1: 48 % of predicted at 1.11 L FVC: 84 % of predicted at 2.48 L FEV1/FVC: 45 % Bronchodilator response: Absent Volumes: Total lung capacity: 100 % of predicted at 5.02 L Residual volume: 137 % of predicted at 2.57 L Slow vital capacity: 78 % of predicted at 2.45 L Expiratory reserve volume: 140 % of predicted at 1.06 L Diffusion capacity: Moderately decreased Impression: Severe obstructive ventilatory defect with no bronchodilator response. Increased residual volume suggests air trapping. Decreased diffusion capacity suggests emphysema. MTDD
== END 2024-01-12 10:52 | disposition home or self-care (01) ==
LOC: HO.RESP 10:51
PROVIDERS: PCP Internal Medicine; Visit Provider Internal Medicine
DX: J44.9 Chronic obstructive pulmonary disease, unspecified (principal); R06.09 Other forms of dyspnea
CPT/HCPCS: 94010; 94640; 94727; 94729

== ENCOUNTER → 2024-01-12 16:10 | Outpatient (BNV) | payer MEDICARE, MEDICAID, SELFPAY | PROVIDERS: PCP Internal Medicine; Visit Provider Internal Medicine Pulmonary Disease | DX: J44.9 Chronic obstructive pulmonary disease, unspecified (principal) | CPT/HCPCS: 94060; 94727; 94729 ==

== ENCOUNTER 2024-03-19 12:49 | Outpatient (REF) | payer MEDICARE, MEDICAID, SELFPAY ==
--- NOTE | ~2024-03-19 | MM_ITS ---
EXAMINATION: MM SCREENING DIGITAL BREAST TOMOSYNTHESIS, BILATERAL CLINICAL INFORMATION: Screening. Asymptomatic. COMPARISON: Mammography: Comparison is made with available priors TECHNIQUE: Digital breast tomosynthesis is performed in both the craniocaudal and mediolateral oblique views along with computer-aided detection (CAD). Synthesized 2D images are generated from the tomosynthesis. FINDINGS: The breasts are heterogeneously dense, which may obscure small masses (ACR BI-RADS breast composition Category c). There are no significant masses, abnormal calcifications, or other abnormalities. MM/MM tomosynthesis screening BI IMPRESSION: No mammographic evidence of malignancy. ASSESSMENT: BI-RADS BI-RADS 1 - Negative RECOMMENDATION: Routine annual mammography screening. 1 year F/U This examination should not preclude the clinical evaluation of a suspicious palpable abnormality. This patient's information was entered into a reminder system with a target due date for their next mammogram. Electronically signed by: Donita Dejesus DO 04/13/2024 12:13 PM EDT
== END 2024-03-19 12:50 | disposition home or self-care (01) ==
LOC: HO.MAMMO 12:49
PROVIDERS: PCP Internal Medicine; Visit Provider Internal Medicine
DX: Z12.31 Encounter for screening mammogram for malignant neoplasm of breast (principal)
CPT/HCPCS: 77063; 77067

== ENCOUNTER → 2024-03-19 13:00 | Outpatient (BNV) | payer MEDICARE, MEDICAID, SELFPAY | PROVIDERS: PCP Internal Medicine; Visit Provider Internal Medicine | DX: Z12.31 Encounter for screening mammogram for malignant neoplasm of breast (principal) | CPT/HCPCS: 77063; 77067 ==

== ENCOUNTER 2024-03-23 10:27 | Outpatient (AMB) | payer MEDICARE, MEDICAID, SELFPAY ==
[2024-03-23 10:31] VITALS: BP 168/90; PULSE 79; O2SAT 96; BMI 26.1
--- NOTE | 2024-03-23 10:31 | A.OFFVIS_ITS ---
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 Patient describes dyspnea on exertion when doing shopping. Denies prior personal or family history of lung disease. She denies exposure to industrial dusts. Patient has been using Incruse and level butyrate all MDI with suboptimal control of her symptoms. She does have a history of ?LLL in 2016 for ?malignant nodules and is currently followed by [facility] lung cancer screening program. [facility] Medical History (Updated 03/23/24 @ 11:29 by Dom Frost MD) AIN grade I HTN (hypertension) Hyperlipidemia IBS (irritable bowel syndrome) Anxiety and depression COPD (chronic obstructive pulmonary disease) Surgical History S/P lobectomy of lung H/O colonoscopy Social History (Updated 03/23/24 @ 10:36 by PRISCILLA Winchester) Patient Tobacco Use Status: Current everyday Tobacco user Tobacco use type: Cigarette Cigarette Packs Per Day: 0.5 Cigarettes Per Day: 10 Review of Systems Const Denies daytime sleepiness, Denies excessive sweating, Denies fatigue, Denies fever(s), Denies lethargy, Denies malaise, Denies night sweats, Denies snoring and Denies weight loss Eyes Denies blurry vision and Denies itchy eyes ENT Denies nasal congestion, Denies post nasal drip, Denies sinus pain, Denies sinus pressure and Denies other ( Thrush) Card Denies chest pain, Denies pedal edema, Denies dyspnea, Reports dyspnea on exertion, Denies orthopnea and Denies paroxysmal nocturnal dyspnea Resp Denies cough, Denies hemoptysis, Denies excessive phlegm production, Denies dyspnea, Reports dyspnea on exertion, Denies snoring and Denies wheezing GI Denies abdominal pain and Denies heartburn Musc Denies myalgias, Denies arthralgias and Denies joint swelling Skin/Breast Denies rash Neuro Denies memory loss and Denies seizure-like activity Psych Denies abnormal sleep pattern, Denies anxiety and Denies memory loss Endo Denies excessive sweating, Denies fatigue and Denies heat intolerance Zac/Lymph Denies easy bruising Aller/Immun Denies itchy eyes, Denies seasonal rhinorrhea and Denies wheezing Physical Exam Vital Signs: Last Vital Signs Pulse 79 03/23/24 10:31 BP 168/90 H 03/23/24 10:31 Pulse Ox 96 03/23/24 10:31 Oxygen Delivery Method Room Air 03/23/24 10:31 BMI result Body Mass Index 26.1 Const General: no acute distress and alert Nutritional Appearance: not obese Orientation/consciousness: Other orientation findings ( oriented) HEENT Head: Yes atraumatic Eyes General: appearance normal, both eyes and all related structures Sclerae: sclerae normal EOM: EOMs intact bilaterally Neck Neck: Yes supple Lymphatic: no lymphadenopathy noted Resp Effort & Inspection: normal respiratory effort and no use of accessory muscles Auscultation: clear to auscultation bilaterally Cardio Rate: regular rate Rhythm: regular rhythm Heart sounds: no gallops, no murmurs and no rubs Skin General skin exam: other ( warm) Extrem General: No clubbing, No cyanosis and No edema Office Procedures 6 Minute Walk Time:: 11:10 SPO2 % at rest: 94 Pulse at rest: 72 SPO2 % during excercise: 87 Pulse during excercise: 87 SPO2 % after excercise: 95 Pulse after excercise: 83 Distance in yards walked: 170 Becky Score: 5 Performance Observations:: Nadia walked on level ground unassisted, she walked on room air for 50 yards before her SPO2 decreased to 87%. O2 started at 1 lpm and with a brief rest her SPO2 recovered to 94%. She maintained her SPO2 92-95% for the remainder of the walk. [address]808 - 6 Minute Walk Assessment & Plan Assessment & Plan (1) COPD (chronic obstructive pulmonary disease): Code(s): J44.9 - Chronic obstructive pulmonary disease, unspecified Category: Medical Plan: Pulmonary function test reviewed. Severe COPD suboptimally controlled on Incruse. Inhaler technique checked and adjusted. Switch Incruse to Anoro. Continue albuterol MDI. Add duo nebs. Start pulmonary rehab. (2) Supplemental oxygen dependent: Code(s): Z99.81 - Dependence on supplemental oxygen Category: Medical Plan: In office 6 minute walk/supplemental oxygen evaluation performed. Patient requires 1 L of supplemental oxygen to maintain normal oximetry with exertion. Oxygen order placed. (3) Personal history of nicotine dependence: Code(s): Z87.891 - Personal history of nicotine dependence Category: Medical Plan: Currently followed by [facility] lung cancer screening program. Records requested. Orders: Orders Pulmonary Rehab Today J44.9 - Chronic obstructive pulmonary disease, unspecified AMB 6 minute walk Today J44.9 - Chronic obstructive pulmonary disease, unspecified Medications: New ipratropium-albuterol 0.5 mg-3 mg(2.5 mg base)/3 mL 3 mL inhalation Q4-6H PRN 180 mL 3RF wheezing J44.9 - Chronic obstructive pulmonary disease, unspecified umeclidinium-vilanterol 62.5-25 mcg/actuation (Anoro Ellipta) 1 inh inhalation DAILY 1 ea 6RF J44.9 - Chronic obstructive pulmonary disease, unspecified Coding Level of Care Code New Pt Level 4 (94567) Complex EM visit Add On G2211 Diagnoses COPD (chronic obstructive pulmonary disease) J44.9 Supplemental oxygen dependent Z99.81 Personal history of nicotine dependence Z87.891 CPT Codes Coding ([id number])
[2024-03-23 11:22] VITALS: PULSE 72; O2SAT 94
== END 2024-03-23 11:17 | disposition home or self-care (01) ==
PROVIDERS: PCP Internal Medicine; Referring Provider Internal Medicine; Visit Provider Internal Medicine Pulmonary Disease
DX: J44.9 Chronic obstructive pulmonary disease, unspecified (principal); Z99.81 Dependence on supplemental oxygen; Z87.891 Personal history of nicotine dependence
CPT/HCPCS: 94618; 99214; G2211

== ENCOUNTER → 2024-03-23 10:27 | Outpatient (BNVA) | payer MEDICARE, MEDICAID, SELFPAY | PROVIDERS: PCP Internal Medicine; Referring Provider Internal Medicine; Visit Provider Internal Medicine Pulmonary Disease | DX: J44.9 Chronic obstructive pulmonary disease, unspecified (principal); F17.210 Nicotine dependence, cigarettes, uncomplicated; Z99.81 Dependence on supplemental oxygen | CPT/HCPCS: 94618; 99212 ==

== ENCOUNTER 2024-04-18 13:43 | Outpatient (AMB) | payer MEDICARE, MEDICAID, SELFPAY ==
[2024-04-18 13:51] VITALS: BP 160/90; PULSE 74; O2SAT 98; BMI 25.6
--- NOTE | 2024-04-18 13:51 | A.OFFVIS_ITS ---
Vital Signs 04/18/24 13:51 Height 5 ft 4 in Weight 149 lb BMI 25.6 BP 160/90 H Blood Pressure Location Rt brachial Position Sitting Pulse 74 Pulse Source Doppler Pulse Oximetry (%) 98 Oxygen Delivery Method Room Air Intake Visit Reasons: COPD Allergies No Known Allergies Allergy (Verified 03/23/24 10:34) HPI HPI COPD: Details: 69-year-old lady, active 40+ pack-year smoker with recent diagnosis of severe COPD referred for pulmonary evaluation. Patient describes dyspnea on exertion when doing shopping. Denies prior personal or family history of lung disease. She denies exposure to industrial dusts. Patient has been using Incruse and level butyrate all MDI with suboptimal control of her symptoms. She does have a history of ?LLL in 2016 for ?malignant nodules and is currently followed by [facility] lung cancer screening program. After the last office visit patient was started on Anoro with significant symptomatic improvement. She also started pulmonary rehab and she derives significant benefit participating in it. patient states that she has not required to use supplemental oxygen continuously, but does use it intermittently as needed. REPLACED BY [facility] Medical History (Updated 03/23/24 @ 11:29 by Dom Frost MD) AIN grade I HTN (hypertension) Hyperlipidemia IBS (irritable bowel syndrome) Anxiety and depression COPD (chronic obstructive pulmonary disease) Surgical History S/P lobectomy of lung H/O colonoscopy Social History (Updated 03/23/24 @ 10:36 by Shala Marr [facility]) Patient Tobacco Use Status: Current everyday Tobacco user Tobacco use type: Cigarette Cigarette Packs Per Day: 0.5 Cigarettes Per Day: 10 Review of Systems Const Denies daytime sleepiness, Denies excessive sweating, Denies fatigue, Denies fever(s), Denies lethargy, Denies malaise, Denies night sweats, Denies snoring and Denies weight loss Eyes Denies blurry vision and Denies itchy eyes ENT Denies nasal congestion, Denies post nasal drip, Denies sinus pain, Denies sinus pressure and Denies other ( Thrush) Card Denies chest pain, Denies pedal edema, Denies dyspnea, Denies orthopnea and Denies paroxysmal nocturnal dyspnea Resp Denies cough, Denies hemoptysis, Denies excessive phlegm production, Denies dyspnea, Denies snoring and Denies wheezing GI Denies abdominal pain and Denies heartburn Musc Denies myalgias, Denies arthralgias and Denies joint swelling Skin/Breast Denies rash Neuro Denies memory loss and Denies seizure-like activity Psych Denies abnormal sleep pattern, Denies anxiety and Denies memory loss Endo Denies excessive sweating, Denies fatigue and Denies heat intolerance Zac/Lymph Denies easy bruising Aller/Immun Denies itchy eyes, Denies seasonal rhinorrhea and Denies wheezing Physical Exam Vital Signs: Last Vital Signs Pulse 74 04/18/24 13:51 BP 160/90 H 04/18/24 13:51 Pulse Ox 98 04/18/24 13:51 Oxygen Delivery Method Room Air 04/18/24 13:51 BMI result Body Mass Index 25.6 Const General: no acute distress and alert Nutritional Appearance: not obese Orientation/consciousness: Other orientation findings ( oriented) HEENT Head: Yes atraumatic Eyes General: appearance normal, both eyes and all related structures Sclerae: sclerae normal EOM: EOMs intact bilaterally Neck Neck: Yes supple Lymphatic: no lymphadenopathy noted Resp Effort & Inspection: normal respiratory effort and no use of accessory muscles Auscultation: clear to auscultation bilaterally Cardio Rate: regular rate Rhythm: regular rhythm Heart sounds: no gallops, no murmurs and no rubs Skin General skin exam: other ( warm) Extrem General: No clubbing, No cyanosis and No edema Assessment & Plan Assessment & Plan (1) COPD (chronic obstructive pulmonary disease): Code(s): J44.9 - Chronic obstructive pulmonary disease, unspecified Category: Medical Plan: Well controlled on current regimen of Anoro, duo nebs, and Xopenex MDI. Continue current regimen. (2) Supplemental oxygen dependent: Code(s): Z99.81 - Dependence on supplemental oxygen Category: Medical Plan: Continue supplemental oxygen to maintain O2 saturation above 88%. (3) Personal history of nicotine dependence: Code(s): Z87.891 - Personal history of nicotine dependence Category: Medical Plan: Records from [facility] CT scan from some of 2023 reviewed, no worrisome nodules. Patient continues to follow-up with [facility] lung cancer screening program. Coding Level of Care Code Est Pt Level 4 (02919) Diagnoses COPD (chronic obstructive pulmonary disease) J44.9 Supplemental oxygen dependent Z99.81 Personal history of nicotine dependence Z87.891
== END 2024-04-18 14:10 | disposition home or self-care (01) ==
PROVIDERS: PCP Internal Medicine; Visit Provider Internal Medicine Pulmonary Disease
DX: J44.9 Chronic obstructive pulmonary disease, unspecified (principal); Z99.81 Dependence on supplemental oxygen; Z87.891 Personal history of nicotine dependence
CPT/HCPCS: 99214

== ENCOUNTER → 2024-04-18 13:43 | Outpatient (BNVA) | payer MEDICARE, MEDICAID, SELFPAY | PROVIDERS: PCP Internal Medicine; Visit Provider Internal Medicine Pulmonary Disease | DX: J44.9 Chronic obstructive pulmonary disease, unspecified (principal); F17.210 Nicotine dependence, cigarettes, uncomplicated; Z90.2 Acquired absence of lung [part of]; Z99.81 Dependence on supplemental oxygen | CPT/HCPCS: 99212 ==

== ENCOUNTER 2024-05-02 13:35 | Outpatient (AMB) | payer MEDICARE, MEDICAID, SELFPAY ==
[2024-05-02 13:35] VITALS: BMI 25.9
--- NOTE | 2024-05-02 13:35 | A.OFFVIS_ITS ---
Vital Signs 05/02/24 13:35 Height 5 ft 4 in Weight 151 lb BMI 25.9 Intake Visit Reasons: 6 month follow up, anal condyloma Intake Note: This patient presents for 6 month follow up, anal condyloma. Pt c/o; reports no complaints. 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 Preston. I had seen her last October,. She is here for surveillance for this. I had last seen her in the office in October,. She currently denies significant complaints. She denies any bleeding or pain. She feels well overall. She does complain of chronic constipation but says that Metamucil that I had prescribed her have helped a lot. [facility] Medical History AIN grade I HTN (hypertension) Hyperlipidemia IBS (irritable bowel syndrome) Anxiety and depression COPD (chronic obstructive pulmonary disease) Surgical History S/P lobectomy of lung H/O colonoscopy Social History Patient Tobacco Use Status: Current everyday Tobacco user Tobacco use type: Cigarette Cigarette Packs Per Day: 0.5 Cigarettes Per Day: 10 Physical Exam Vital Signs: BMI result Body Mass Index 25.9 Office Procedures Anoscopy She was in mirela-knife position. The anoscope was gently inserted. A full examination of the anal canal was done. She did have some internal external hemorrhoids which were non bulky. There were no lesions seen. There was no fissure. There was no ulceration. There was no induration on digital exam. There was no bleeding. There was no abnormal looking mucosa or skin surface. [id number] Assessment & Plan Assessment & Plan (1) AIN grade I: Code(s): K62.82 - Dysplasia of anus Category: Medical Plan: Her anoscopy does not reveal any unusual findings. She looks well clinically. She denies any complaints with regards to his anus. She had a low-grade lesion removed before so I will see her again in the office in about 6 months. She understands the plan well. Coding Level of Care Code Est Pt Level 3 (87222) Diagnoses AIN grade I K62.82 CPT Codes Details - CPT: 56151-[id number] ([id number])
== END 2024-05-02 13:58 | disposition home or self-care (01) ==
PROVIDERS: PCP Internal Medicine; Visit Provider Surgery
DX: K62.82 Dysplasia of anus (principal)
CPT/HCPCS: 46600; 99213

== ENCOUNTER → 2024-05-02 13:35 | Outpatient (BNVA) | payer MEDICARE, MEDICAID, SELFPAY | PROVIDERS: PCP Internal Medicine; Visit Provider Surgery | DX: K62.82 Dysplasia of anus (principal) | CPT/HCPCS: 46600; 99212 ==

== ENCOUNTER 2024-06-13 06:33 | Outpatient (REF) | payer MEDICARE, MEDICAID, SELFPAY ==
[2024-06-13 06:48] LABS: MANUAL DIFF FLAG NO
[2024-06-13 07:24] LABS: Basophils Absolute Auto 0.1 X10*3/uL (0.0-0.2); Basophils Percent Auto 1.3 % (0-2); Eosinophils Absolute Auto 0.4 X10*3/uL (0.0-0.4); Eosinophils Percent Auto 5.2 % (0-4); Hematocrit 44.2 % (37.0-47.0); Hemoglobin 14.8 g/dl (12.0-16.0); Imm Gran Abs Auto 0.01 X10*3/uL (0.00-0.03); Imm Gran Pct Auto 0.1 % (0.0-0.4); Lymphocytes Percent Auto 29.5 % (20-40); Mean Corpuscular HGB Conc 33.5 g/dl (31.0-35.0); Mean Corpuscular Hemoglobin 30.8 pg (27.0-33.0); Mean Corpuscular Volume 91.9 fL (80.0-98.0); Mean Platelet Volume 9.3 fL (9.4-12.3); Monocytes Absolute Auto 0.6 X10*3/uL (0.1-1.2); Neutrophils Absolute Auto 3.7 x10*3/uL (2.0-8.3); Neutrophils Percent Auto 54.9 % (45-73); Platelet Count 187 X10*3/uL (160-400); Red Blood Count 4.81 X10*6/uL (4.20-5.50); Red Cell Distribution Width 13.6 % (11.0-16.0); White Blood Count 6.8 X10*3/uL (4.8-10.8)
[2024-06-13 07:33] LABS: Estimated Average Glucose 105 mg/dL; Hemoglobin A1C 131.1007 umol/L; Hemoglobin A1c % 5.3 % (<6.0)
[2024-06-13 08:01] LABS: Alanine Aminotransferase 21 U/L (0-31); Albumin Level 4.2 g/dL (3.5-5.0); Alkaline Phosphatase 68 U/L (39-117); Anion Gap 14 (12-20); Aspartate Amino Transferase 23 U/L (5-31); Bilirubin Total 0.2 mg/dL (0.0-1.0); Blood Urea Nitrogen 13 mg/dL (9-16); Calcium 9.4 mg/dL (8.4-10.2); Carbon Dioxide 28 mmol/L (22-29); Chloride 98 mmol/L (96-108); Cholesterol 251 mg/dL (<200); Estimated Glomerular Filt Rate > 60; Glucose Random 103 mg/dL (60-115); HDL Cholesterol 56 mg/dL (>40); LDL Cholesterol Calculated 184 mg/dL (<100); Potassium 4.5 mmol/L (3.3-5.1); Sodium 135 mmol/L (135-145); Triglycerides 56 mg/dL (<150)
[2024-06-13 08:10] LABS: Appearance Urine Clear; Color Urine Yellow; Glucose Urine UA Negative (Negative); Leukocyte Esterase Urine Negative (Negative); Nitrite Urine Negative (Negative); PH 6.5 (5.0-9.0); Urine Blood Negative (Negative); Urine Ketones Negative (Negative); Urine Protein Negative (Neg-Trace)
[2024-06-13 08:17] LABS: Thyroid Stimulating Hormone 1.07 uIU/mL (0.32-4.0); Vitamin D 25-OH Total 44.4 ng/mL (>30)
== END 2024-06-13 06:34 | disposition home or self-care (01) ==
LOC: HO.LAB 06:33
PROVIDERS: PCP Internal Medicine; Visit Provider Internal Medicine
DX: E78.00 Pure hypercholesterolemia, unspecified (principal); I10 Essential (primary) hypertension; M81.0 Age-related osteoporosis without current pathological fracture; Z13.1 Encounter for screening for diabetes mellitus
CPT/HCPCS: 36415; 80053; 80061; 81003; 82306; 83036; 84443; 85025

== ENCOUNTER 2024-06-14 13:30 | Outpatient (RCR) | payer MEDICARE, MEDICAID, SELFPAY | END 2024-07-06 07:19 | disposition home or self-care (01) | LOC: HO.PR 13:30 | PROVIDERS: PCP Internal Medicine; Visit Provider Internal Medicine Pulmonary Disease | DX: J44.9 Chronic obstructive pulmonary disease, unspecified (principal) | CPT/HCPCS: 94618; 94625; 99212 ==

== ENCOUNTER 2024-08-01 13:06 | Outpatient (REF) | payer MEDICARE, MEDICAID, SELFPAY ==
--- NOTE | ~2024-08-01 | MM_ITS ---
EXAMINATION: Dual-Energy X-ray Absorptiometry - Bone Density Study HISTORY: Estrogen deficiency TECHNIQUE: Sitrion Dual energy absorptiometry (DEXA) of the lumbar spine, total left hip, and femoral neck was performed. COMPARISON: Comparison is made with the prior examination dated 09/22/2018. FINDINGS: The bone mineral density of the lumbar spine is 0.793 with a T-score of -3.1, and a Z-score of -1.6. This represents a BMD change of -9.5% compared to the prior exam. This is statistically significant. The bone mineral density of the left total hip is 0.757 with a T-score of -2.0, and a Z-score of -0.7. This represents BMD change of -4.4% compared to the prior exam. This is not statistically significant. The bone mineral density of the left femoral neck is 0.634 with a T-score of -2.9, and a Z-score of -1.4. This represents BMD change of -6.2% compared to the prior exam. MM/XR DEXA axial skeleton IMPRESSION: Based on bone mineral density, and according to World Health Organization (WHO) criteria, the diagnosis is consistent with osteoporosis. All bone density values are in grams per centimeter squared. At this facility, the least significant change in BMD with 95% confidence is 0.022 at the lumbar spine, 0.027 at the hip, and 0.023 at the distal 1/3 radius. Electronically signed by: Aj Goznalez MD 08/03/2024 08:13 AM [facility]
== END 2024-08-01 13:07 | disposition home or self-care (01) ==
LOC: HO.MAMMO 13:06
PROVIDERS: PCP Internal Medicine; Visit Provider Internal Medicine
DX: M81.0 Age-related osteoporosis without current pathological fracture (principal)
CPT/HCPCS: 77080

== ENCOUNTER → 2024-08-01 13:30 | Outpatient (BNV) | payer MEDICARE, MEDICAID, SELFPAY | PROVIDERS: PCP Internal Medicine; Visit Provider Radiology Diagnostic Radiology | DX: M81.0 Age-related osteoporosis without current pathological fracture (principal) | CPT/HCPCS: 77080 ==

== ENCOUNTER 2024-09-04 10:51 | Outpatient (REF) | payer MEDICARE, MEDICAID, SELFPAY ==
[2024-09-04 11:10] LABS: MANUAL DIFF FLAG NO
[2024-09-04 11:51] LABS: Basophils Absolute Auto 0.1 X10*3/uL (0.0-0.2); Basophils Percent Auto 0.8 % (0-2); Eosinophils Absolute Auto 0.3 X10*3/uL (0.0-0.4); Eosinophils Percent Auto 3.3 % (0-4); Hematocrit 44.5 % (37.0-47.0); Hemoglobin 14.9 g/dl (12.0-16.0); Imm Gran Abs Auto 0.02 X10*3/uL (0.00-0.03); Imm Gran Pct Auto 0.2 % (0.0-0.4); Lymphocytes Absolute Auto 2.2 X10*3/uL (1.2-4.9); Mean Corpuscular HGB Conc 33.5 g/dl (31.0-35.0); Mean Corpuscular Hemoglobin 31.5 pg (27.0-33.0); Mean Corpuscular Volume 94.1 fL (80.0-98.0); Mean Platelet Volume 9.5 fL (9.4-12.3); Monocytes Absolute Auto 0.8 X10*3/uL (0.1-1.2); Monocytes Percent Auto 9.2 % (2-11); Neutrophils Absolute Auto 5.2 x10*3/uL (2.0-8.3); Neutrophils Percent Auto 60.5 % (45-73); Platelet Count 183 X10*3/uL (160-400); Red Blood Count 4.73 X10*6/uL (4.20-5.50); Red Cell Distribution Width 13.4 % (11.0-16.0); White Blood Count 8.6 X10*3/uL (4.8-10.8)
[2024-09-04 11:53] LABS: Appearance Urine Clear; Color Urine Yellow; Glucose Urine UA Negative (Negative); Leukocyte Esterase Urine Negative (Negative); Nitrite Urine Negative (Negative); Specific Gravity - Urine 1.015 (1.005-1.025); Urine Blood Negative (Negative); Urine Ketones Negative (Negative); Urine Protein Negative (Neg-Trace)
--- OUTSIDE RECORDS SUMMARY | 2024-09-04 12:15 | XMS_ITS | Patient Health Record ---
Author Organization [facility] Address [address] [place] [address] Care Team Providers Care Foreign Languages Department Chair Name Role Phone Alin Ceja MD Primary Care Provider Unavaila Lambert Briggs Jr Unavailable ALLERGIES No Known Allergies REASON FOR REFERRAL No Information MEDICATIONS Medication SIG (Take, Route, Frequency, Duration) Notes Start Date End Date Status Metoclopramide HCl 10 MG Oral for 30 Active SUMAtriptan Succinate 100 MG null Diagno sis Unavailable Oral for 30 Active clonazePAM 1 MG null Diagnosis Unavailable Oral for 30 Active QUEtiapine Fumarate 25 MG null Diagnosis Unavailable Oral for 30 Active SEROquel 25 MG 1 tablet at bedtime Orally Once a day for 30 day(s) Active Wellbutrin SR 150 MG 1 tablet in the mor marva Orally Once a day for 30 day(s) Active KlonoPIN 1 MG 1 tablet Orally Once a day Active Incruse Ellipta 62.5 MCG/ACT 1 puff Inha lation Once a day 09/06/2022 Active Lisinopril 10 MG 1 tablet Orally Once a day for 30 day(s) 09/06/2022 Active MiraLax (colon prep) 8.3 ounce ((238) grams mixed with Gatorade or Crystal Light orally begin at 5:00 p.m. the day before the procedure for 1 day 09/06/2022 Active IMMUNIZATIONS Vaccine Route Administration Date Status Comme nts Influenza Unknown 09/06/2022 Refused SOCIAL HISTORY Tobacco Use: Social History Observation Description Date Details (start date - stop date) Never Smoker NA - NA Sex Assigned At : Social History Observation Description Sex Assigned At Unknown Tobacco Use/Smoking Question Answer Notes Patient is a nonsmoker Alcohol Screen Question Answer Notes Did you have a drink containing alcohol in the p ast year? No Points 0 Interpretation Negative PROBLEMS Problem Type ICD Code Onset Dates Problem Status W/U Status Risk SNOMED Code Notes Problem Colon cancer screening (Z12.11) Active confirmed 612639033 Problem Irritable bowel syndrome, unspecified type (K58.9) Active confirmed 00606294 Problem Condyloma (A63.0) Active confirmed Condyloma (64489027) PLAN OF TREATMENT Future Test Test Name Order Date COLONOSCOPY 09/06/2022 Insurance Providers Payer Name Payer Address Payer Phone Subscriber Number Group Number Insured Name Patient Relationship to Insured Coverage Start Date Coverage End Date MEDICARE OF [place] [address] [place] [id number] [phone] [id number] ELYSE DORAN Self - patient is the insured MEDICAID OF [facility] [address] [place] [phone] [id number] ELYSE DORAN Self - patient is the insured MEDICAL (GENERAL) HISTORY Medical History History ICD Code COPD Anxiety/depression Irritable bowel syndrome Colonoscopy in 2012, ten-year followup Hyperlipidemia Hypertension Surgical History Surgery Date(Month/Year) Left lower lobectomy, T1a N0 adenocarcin epi 2017
--- OUTSIDE RECORDS SUMMARY | 2024-09-04 12:15 | XMS_ITS | Patient Health Record ---
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 Name Role Phone Alin Ceja Primary Care Provider Unavailabl e Allergies No Known Allergies Reason For Referral No Information Medications Medication SIG (Take, Route, Frequency, Duration) Notes Start Date End Date Status Azithromycin 250 MG 2 tablet on the first day, then 1 tablet daily for 4 days Orally Once a day for 5 day(s) 02/23/2021 Not-Taking Promethazine-Codeine 6.25-10 MG/5ML 5 ml as needed Orally every 6 hrs 10/24/2021 Active predniSONE 10 MG [id number] obdp3qvse5rov Orally Once a day for 6 days 02/23/2021 Not-Taking Promethazine-Codeine 6.25-10 MG/5ML 5 ml Orally Q 8 hours prn cough 02/23/2021 Not-Taking Azithromycin 250 MG 2 tablet on the first day, then 1 tablet daily for 4 days Orally Once a day for 5 day(s) 03/06/2021 Not-Taking predniSONE 10 MG (21) 2 tablets with kota d or milk Orally Once a day for 7 days 12/05/2020 Not-Taking methylPREDNISolone 4 MG as directed Orally 021 Not-Taking Montelukast Sodium 10 MG 1 tablet Orally Once a day for 90 days 11/26/2020 Not-Taking Famotidine 20 MG 1 tablet Orally Twice a day for 90 days 11/26/2020 Not-Taking predniSONE 10 MG [id number] 0uqgg3nlx Orally Once a day for 6 days 10/24/2021 Active Fexofenadine HCl 180 MG 1 tablet Orally Twice a day for 90 days 11/26/2020 Not-Taking Social History Tobacco Use: Social History Observation Description Date Details (start date - stop date) Never Smoker NA - NA Tobacco Use/Smoking Question Answer Notes Patient is a: never smoker Section Notes: one dog, no smoker one dog, no smoker one dog, no smoker one dog, no smoker Problems Problem Type SNOMED Code ICD Code Onset Dates Problem Status W/U Status Risk Notes Problem Allergic contact dermatitis caused by dye (disorder) (823778170) 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) Active confirmed Problem Pruritic disorders (885861642) Chronic pruritus (L29.9) Active confirmed Plan Of Treatment Future Test Test Name Order Date HELICOBACTER PYLORI AG, EIA, STOOL (H-PY JAVIER) 11/26/2020 Skin Patch test--attach the patch test t emplate 11/26/2020 Insurance Providers Payer Name Payer Address Payer Phone Subscriber Number Group Number Insured Name Patient Relationship to Insured Coverage Start Date Coverage End Date Medicare [place] [address] [place] [address] [id number] Nadia English Self - patient is the insured 4 [employer] [address] [place] [address] [id number] Nadia English Self - patient is the insured Medications Administered Medication Instructions Date of Administration Dosage Notes Depo Medrol 11/26/2020 40 mg Medical (General) History Surgical History Surgery Date(Month/Year)
[2024-09-04 12:41] LABS: Estimated Average Glucose 103 mg/dL; Hemoglobin A1C 125.7916 umol/L; Hemoglobin A1c % 5.2 % (<6.0); Total Hemoglobin (HGBA1C) 3837.5799 umol/L
[2024-09-04 12:42] LABS: Alanine Aminotransferase 16 U/L (0-31); Albumin Level 4.3 g/dL (3.5-5.0); Alkaline Phosphatase 71 U/L (39-117); Anion Gap 10 (12-20); Aspartate Amino Transferase 20 U/L (5-31); Bilirubin Total 0.3 mg/dL (0.0-1.0); Blood Urea Nitrogen 9 mg/dL (9-16); Calcium 9.6 mg/dL (8.4-10.2); Carbon Dioxide 32 mmol/L (22-29); Chloride 102 mmol/L (96-108); Cholesterol 237 mg/dL (<200); Estimated Glomerular Filt Rate > 60; Glucose Random 93 mg/dL (60-115); HDL Cholesterol 59 mg/dL (>40); LDL Cholesterol Calculated 160 mg/dL (<100); Potassium 4.6 mmol/L (3.3-5.1); Sodium 139 mmol/L (135-145); Total Protein 7.5 g/dL (6.5-8.0); Triglycerides 94 mg/dL (<150)
[2024-09-04 12:59] LABS: Thyroid Stimulating Hormone 1.19 uIU/mL (0.32-4.0); Vitamin D 25-OH Total 50.8 ng/mL (>30)
== END 2024-09-04 10:52 | disposition home or self-care (01) ==
LOC: HO.LAB 10:51
PROVIDERS: PCP Internal Medicine; Visit Provider Internal Medicine
DX: R73.01 Impaired fasting glucose (principal); E78.00 Pure hypercholesterolemia, unspecified; I10 Essential (primary) hypertension; M81.0 Age-related osteoporosis without current pathological fracture
CPT/HCPCS: 36415; 80053; 80061; 81003; 82306; 83036; 83970; 84443; 85025

== ENCOUNTER 2024-10-16 13:55 | Outpatient (AMB) | payer MEDICARE, MEDICAID, SELFPAY ==
[2024-10-16 14:09] VITALS: BP 152/82; PULSE 77; O2SAT 94; BMI 27.1
--- NOTE | 2024-10-16 14:09 | A.OFFVIS_ITS ---
Vital Signs 10/16/24 14:09 Height 5 ft 4 in Weight 158 lb BMI 27.1 BP 152/82 H Blood Pressure Location Lt brachial Position Sitting Pulse 77 Pulse Source Doppler Pulse Oximetry (%) 94 Oxygen Delivery Method Room Air Intake Visit Reasons: COPD Allergies No Known Allergies Allergy (Verified 10/16/24 14:14) [facility]LY [facility] Medical History AIN grade I HTN (hypertension) Hyperlipidemia IBS (irritable bowel syndrome) Anxiety and depression COPD (chronic obstructive pulmonary disease) Surgical History S/P lobectomy of lung H/O colonoscopy Social History Patient Tobacco Use Status: Current everyday Tobacco user Tobacco use type: Cigarette Cigarette Packs Per Day: 0.5 Cigarettes Per Day: 10 Physical Exam Vital Signs: Last Vital Signs Pulse 77 10/16/24 14:09 BP 152/82 H 10/16/24 14:09 Pulse Ox 94 10/16/24 14:09 Oxygen Delivery Method Room Air 10/16/24 14:09 BMI result Body Mass Index 27.1 Office Procedures 6 Minute Walk Time:: 14:40 SPO2 % at rest: 93 Pulse at rest: 78 SPO2 % during excercise: 88 Pulse during excercise: 105 SPO2 % after excercise: 94 Pulse after excercise: 94 Distance in yards walked: 340 Becky Score: 5 Performance Observations:: Nadia walked on level ground at a brisk pace unassi sted, she walked on room air for 100 yards before her SPO2 decreased to 88% on RA. O2 started on pulsed setting 2 and with a brief rest her SPO2 recovered to 93%, she maintained her SPO2 90-93% on pulsed setting 2. [address] - 6 Minute Walk Assessment & Plan Assessment & Plan (1) COPD (chronic obstructive pulmonary disease): Code(s): J44.9 - Chronic obstructive pulmonary disease, unspecified Category: Medical Plan: Reasonably well controlled on current regimen of Anoro, duo nebs, and Xopenex. Continue current regimen. (2) Supplemental oxygen dependent: Code(s): Z99.81 - Dependence on supplemental oxygen Category: Medical Plan: Continue supplemental oxygen to maintain O2 saturation of 89-93%. Portable oxygen concentrator evaluation performed, patient is able to maintain normal oximetry with exertion on portable oxygen concentration setting 3. Updated order placed with [employer]. (3) Personal history of nicotine dependence: Code(s): Z87.891 - Personal history of nicotine dependence Category: Medical Plan: Patient continues to follow-up with [facility] lung cancer screening program. Patient is actively trying to quit smoking. Orders: Orders AMB 6 minute walk Today J44.9 - Chronic obstructive pulmonary disease, unspecified Coding Level of Care Code Est Pt Level 4 (22860) Complex EM visit Add On G2211 Diagnoses COPD (chronic obstructive pulmonary disease) J44.9 Supplemental oxygen dependent Z99.81 Personal history of nicotine dependence Z87.891 CPT Codes Coding (7816928645)
[2024-10-16 14:51] VITALS: PULSE 78; O2SAT 93
--- OUTSIDE RECORDS SUMMARY | 2024-10-16 17:19 | XMS_ITS | Patient Health Record ---
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) Active confirmed Problem Pruritic disorders (274060018) Chronic pruritus (L29.9) Active confirmed Plan Of Treatment Future Test Test Name Order Date HELICOBACTER PYLORI AG, EIA, STOOL (H-PY JAVIER) 11/26/2020 Skin Patch test--attach the patch test t emplate 11/26/2020 Insurance Providers Payer Name Payer Address Payer Phone Subscriber Number Group Number Insured Name Patient Relationship to Insured Coverage Start Date Coverage End Date Medicare [place] [address] [place] [phone] [id number] Nadia English Self - patient is the insured 4 [employer] [address] [place] [address] [id number] Nadia English Self - patient is the insured Medications Administered Medication Instructions Date of Administration Dosage Notes Depo Medrol 11/26/2020 40 mg Medical (General) History Surgical History Surgery Date(Month/Year)
--- OUTSIDE RECORDS SUMMARY | 2024-10-16 17:19 | XMS_ITS | Patient Health Record ---
Author Organization [facility] Address [address] [place] [address] Care Team Providers Care Helpdesk Administrator Name Role Phone Alin Ceja MD Primary Care Provider Unavaila Lambert Briggs Jr Unavailable [phone] Allergies No Known Allergies Reason For Referral [...] the procedure for 1 day 09/06/2022 Active Immunizations Vaccine Route Administration Date Status Comme nts Influenza Unknown 09/06/2022 Refused Social History Tobacco Use: Social History Observation Description Date Details (start date - stop date) Never Smoker NA - NA Tobacco Use/Smoking Question Answer Notes Patient is a nonsmoker Alcohol Screen Question Answer Notes Did you have a drink containing alcohol in the p ast year? No Points 0 Interpretation Negative Problems Problem Type SNOMED Code ICD Code Onset Dates Problem Status W/U Status Risk Notes Problem 902060724 Colon cancer screening (Z12.11) Active confirmed Problem 19220191 Irritable bowel syndrome, unspecified type (K58.9) Active confirmed Problem Condyloma (88892286) Condyloma (A63.0) Active confirmed Plan Of Treatment Future Test Test Name Order Date COLONOSCOPY 09/06/2022 Insurance Providers Payer Name Payer Address Payer Phone Subscriber Number Group Number Insured Name Patient Relationship to Insured Coverage Start Date Coverage End Date MEDICARE OF [place] [address] [place] [id number] ELYSE DORAN Self - patient is the insured MEDICAID OF [facility] [employer] [address] [place] [address] [id number] ELYSE DORAN Self - patient is the insured Medical (General) History Medical History History ICD Code COPD Anxiety/depression Irritable bowel syndrome Colonoscopy in 2012, ten-year followup Hyperlipidemia Hypertension Surgical History Surgery Date(Month/Year) Left lower lobectomy, T1a N0 adenocarcin epi 2017
== END 2024-10-16 14:54 | disposition home or self-care (01) ==
LOC: HO.HPS 13:56
PROVIDERS: PCP Internal Medicine; Visit Provider Internal Medicine Pulmonary Disease
DX: J44.9 Chronic obstructive pulmonary disease, unspecified (principal); Z99.81 Dependence on supplemental oxygen; Z87.891 Personal history of nicotine dependence
CPT/HCPCS: 94618; 99214; G2211

== ENCOUNTER → 2024-10-16 13:55 | Outpatient (BNVA) | payer MEDICARE, MEDICAID, SELFPAY | PROVIDERS: PCP Internal Medicine; Visit Provider Internal Medicine Pulmonary Disease | DX: J44.9 Chronic obstructive pulmonary disease, unspecified (principal); Z99.81 Dependence on supplemental oxygen; Z87.891 Personal history of nicotine dependence | CPT/HCPCS: 94618; 99212 ==

== ENCOUNTER 2025-01-01 13:30 | Outpatient (AMB) | payer MEDICARE, MEDICAID, SELFPAY ==
[2025-01-01 14:05] VITALS: BP 138/84; PULSE 83; O2SAT 90; BMI 28.0
--- NOTE | 2025-01-01 14:05 | A.OFFVIS_ITS ---
Vital Signs 01/01/25 14:05 Height 5 ft 4 in Weight 163 lb BMI 28.0 BP 138/84 Blood Pressure Location Lt brachial Position Sitting Pulse 83 Pulse Source Pulse Oximeter Pulse Oximetry (%) 90 L Oxygen Delivery Method Room Air Intake Visit Reasons: COPD Allergies No Known Allergies Allergy (Verified 01/01/25 14:07) HPI HPI COPD: Details: 69-year-old lady, active 40+ pack-year smoker followed for severe supplemental oxygen dependent, on POC, COPD. Patient has been using Anoro, duo nebs, and l evalbuterol MDI with good control of his symptoms. She denies any recent exacerbations. [facility] Medical History AIN grade I HTN (hypertension) Hyperlipidemia IBS (irritable bowel syndrome) Anxiety and depression COPD (chronic obstructive pulmonary disease) Surgical History S/P lobectomy of lung H/O colonoscopy Social History Patient Tobacco Use Status: Current everyday Tobacco user Tobacco use type: Cigarette Cigarette Packs Per Day: 0.5 Cigarettes Per Day: 10 Review of Systems Const Denies daytime sleepiness, Denies excessive sweating, Denies fatigue, Denies fever(s), Denies lethargy, Denies malaise, Denies night sweats, Denies snoring and Denies weight loss Eyes Denies blurry vision and Denies itchy eyes ENT Denies nasal congestion, Denies post nasal drip, Denies sinus pain, Denies sinus pressure and Denies other ( Thrush) Card Denies chest pain, Denies pedal edema, Denies dyspnea, Denies orthopnea and Denies paroxysmal nocturnal dyspnea Resp Denies cough, Denies hemoptysis, Denies excessive phlegm production, Denies dyspnea, Denies snoring and Denies wheezing GI Denies abdominal pain and Denies heartburn Musc Denies myalgias, Denies arthralgias and Denies joint swelling Skin/Breast Denies rash Neuro Denies memory loss and Denies seizure-like activity Psych Denies abnormal sleep pattern, Denies anxiety and Denies memory loss Endo Denies excessive sweating, Denies fatigue and Denies heat intolerance Zac/Lymph Denies easy bruising Aller/Immun Denies itchy eyes, Denies seasonal rhinorrhea and Denies wheezing Physical Exam Vital Signs: Last Vital Signs Pulse 83 01/01/25 14:05 BP 138/84 01/01/25 14:05 Pulse Ox 90 L 01/01/25 14:05 Oxygen Delivery Method Room Air 01/01/25 14:05 BMI result Body Mass Index 28.0 Const General: no acute distress and alert Nutritional Appearance: not obese Orientation/consciousness: Other orientation findings ( oriented) HEENT Head: Yes atraumatic Eyes General: appearance normal, both eyes and all related structures Sclerae: sclerae normal EOM: EOMs intact bilaterally Neck Neck: Yes supple Lymphatic: no lymphadenopathy noted Resp Effort & Inspection: normal respiratory effort and no use of accessory muscles Auscultation: clear to auscultation bilaterally Cardio Rate: regular rate Rhythm: regular rhythm Heart sounds: no gallops, no murmurs and no rubs Skin General skin exam: other ( warm) Extrem General: No clubbing, No cyanosis and No edema Assessment & Plan Assessment & Plan (1) COPD (chronic obstructive pulmonary disease): Code(s): J44.9 - Chronic obstructive pulmonary disease, unspecified Category: Medical Plan: Well controlled on current regimen of Anoro, duo nebs, and levalbuterol MDI. Continue current regimen. (2) Supplemental oxygen dependent: Code(s): Z99.81 - Dependence on supplemental oxygen Category: Medical Plan: Continue supplemental oxygen to maintain O2 saturation above 88%. (3) Personal history of nicotine dependence: Code(s): Z87.891 - Personal history of nicotine dependence Category: Medical Plan: Patient continues to follow-up with [facility] lung cancer screening program. Coding Level of Care Code Est Pt Level 4 (39524) Diagnoses COPD (chronic obstructive pulmonary disease) J44.9 Supplemental oxygen dependent Z99.81 Personal history of nicotine dependence Z87.891
--- OUTSIDE RECORDS SUMMARY | 2025-01-01 15:59 | XMS_ITS | Patient Health Record ---
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) Active confirmed Problem Chronic pruritus (L29.9) Active confirmed Plan Of Treatment Future Test Test Name Order Date HELICOBACTER PYLORI AG, EIA, STOOL (H-PY JAVIER) 11/26/2020 Skin Patch test--attach the patch test t emplate 11/26/2020 Insurance Providers Payer Name Payer Address Payer Phone Subscriber Number Group Number Insured Name Patient Relationship to Insured Coverage Start Date Coverage End Date Medicare [place] [address] [place] [phone] [id number] Nadia English Self - patient is the insured 4 [employer] [address] [place] [address] [id number] Nadia English Self - patient is the insured Medications Administered Medication Instructions Date of Administration Dosage Notes Depo Medrol 11/26/2020 40 mg Medical (General) History Surgical History Surgery Date(Month/Year)
== END 2025-01-01 14:25 | disposition home or self-care (01) ==
LOC: HO.HPS 13:31
PROVIDERS: PCP Internal Medicine; Visit Provider Internal Medicine Pulmonary Disease
DX: J44.9 Chronic obstructive pulmonary disease, unspecified (principal); Z99.81 Dependence on supplemental oxygen; Z87.891 Personal history of nicotine dependence
CPT/HCPCS: 99214

== ENCOUNTER → 2025-01-01 13:30 | Outpatient (BNVA) | payer MEDICARE, MEDICAID, SELFPAY | PROVIDERS: PCP Internal Medicine; Visit Provider Internal Medicine Pulmonary Disease | DX: J44.9 Chronic obstructive pulmonary disease, unspecified (principal); Z87.891 Personal history of nicotine dependence; Z99.81 Dependence on supplemental oxygen | CPT/HCPCS: 99212 ==

== ENCOUNTER 2025-02-27 15:46 | Outpatient (REF) | payer MEDICARE, MEDICAID, SELFPAY ==
--- NOTE | ~2025-02-27 | MR_ITS ---
EXAMINATION: MR BRAIN WITHOUT THEN WITH IV CONTRAST HISTORY: H/A, H/O LUNG CA TECHNIQUE: Sagittal T1, and axial T1, FLAIR, T2, gradient echo, and diffusion weighted MR images of the brain were obtained. Subsequently, sagittal, axial, and coronal T1-weighted images were obtained after the administration of intravenous gadolinium. 7 mL Gadavist was administered. COMPARISON: There are no prior studies available for comparison. FINDINGS: The pituitary is normal in size. The cerebellar tonsils are normally located. Scattered periventricular and subcortical white matter hyperintensities on the FLAIR and T2-weighted images which are nonspecific, but often seen in the setting of small vessel ischemic disease. Hemphill/white differentiation is otherwise normal. There is no mass effect or midline shift. The ventricular system is normal in size and configuration. No intra or extra-axial fluid collections are identified. There are no foci of restricted diffusion. There is no abnormal contrast enhancement. There is mucosal thickening in the bilateral ethmoid and maxillary sinuses. The visualized paranasal sinuses are clear. MR/MR head/brain wo/w con IMPRESSION: No acute intracranial findings. No evidence of metastatic disease. Electronically signed by: Aj Gonzalez MD 02/28/2025 07:43 AM EDT
--- OUTSIDE RECORDS SUMMARY | 2025-02-27 16:12 | XMS_ITS | Clinical Summary ---
Author Organization [facility] Address [address] [address] Phone Care Team Providers Care Repair Order Clerk Name Role Phone Alin Ceja MD Primary Care Provider [phone] Alin Ceja MD Unavailable Allergies Active Allergy Reactions Criticality Noted Date Comments Lisinopril Cough 11/02/2024 Paroxetine Hcl 11/09/2016 Other reaction(s): couldnt sleep Medications cholecalciferol (VITAMIN D3) 5,000 unit capsule Take 5,000 Units by mouth daily. 017 Active ondansetron (ZOFRAN) 8 MG tabletIndications :Nausea Take 1 tablet (8 mg total) by mouth every 8 (eight) hours as needed for nausea. 12 tablet 024 Active fluticasone propionate (FLONASE) 50 mcg/actuation nasal sprayIndications: Allergic rhinitis, unspecified seasonality, unspecified trigger shake liquid and use 2 sprays in each nostril daily 16 g 12 024 Active ipratropium-albut Nir (DUONEB) 0.5-3 mg (2.5 mg base)/3 mL nebulizer solution Take 3 mL by nebulization 3 (three) times a day. 024 Active ANORO ELLIPTA 62.5-25 mcg/actuation diskus inhaler Inhale 1 puff into the lungs every morning. 024 Active olopatadine (PATANOL) 0.1 % ophthalmic solutionIndicatio ns:Allergic conjunctivitis of both eyes INSTILL 1 DROP IN EACH EYE TWICE DAILY 5 mL Active nicotine (NICODERM CQ) 21 mg/24 hrIndications:Tob acco use Place 1 patch onto the skin daily. 30 patch Active Additional Information Patient not taking.Reported on 01/03/2025 levalbuterol (XOPENEX HFA) 45 mcg/actuation inhalerIndication s:Chronic obstructive pulmonary disease INHALE 2 PUFFS INTO THE LUNGS EVERY 4 HOURS NEEDED FOR WHEEZING 45 g 5 Active Additional Information Patient not taking.Reported on 01/03/2025 SUMAtriptan (IMITREX) 100 MG tabletIndications :Migraines TAKE 1 TABLET(100 MG) BY MOUTH TWICE DAILY NEEDED FOR MIGRAINE 9 tablet 3 Active albuterol 90 mcg/actuation inhaler Inhale 2 puffs into the lungs 4 (four) times a day. Active buPROPion (WELLBUTRIN XL) 150 MG ER 24 hr tabletIndications :Anxiety disorder, unspecified type,Depression, unspecified depression type Take 1 tablet (150 mg total) by mouth every morning. 30 tablet 11 Active cetirizine (ZYRTEC) 10 MG tablet Take 10 mg by mouth daily. Active MULTIVITAMIN ORAL Take 1 capsule by mouth daily. Active ascorbic acid, vitamin C, (VITAMIN C) 1000 MG tablet Take 1,000 mg by mouth daily. Active ZINC ORAL Take 50 mg by mouth daily. Active CALCIUM ORAL Take 1 capsule by mouth daily. Active QUEtiapine (SEROQUEL) 25 MG tabletIndications :Anxiety disorder, unspecified type,Depression, unspecified depression type TAKE 2 TABLETS(50 MG) BY MOUTH EVERY NIGHT AT BEDTIME 180 tablet 2 Active clonazePAM (KLONOPIN) 1 MG tabletIndications :Anxiety disorder TAKE 1 TABLET(1 MG) BY MOUTH THREE TIMES DAILY 90 tablet 2 Active lisinopril (PRINIVIL,ZESTRIL ) 30 MG tablet Take 1 tablet (30 mg total) by mouth daily. 90 tablet Active omega-3 acid ethyl esters (LOVAZA) 1 gram capsuleIndication s:Hyperlipidemia Take 2 capsules (2 g total) by mouth 2 (two) times a day. 360 capsule 3 025 Active omega-3 acid ethyl esters (LOVAZA) 1 gram capsuleIndication s:Hyperlipidemia Take 2 capsules (2 g total) by mouth 2 (two) times a day. 360 capsule 4 024 2024 Discontinued Active Problems Problem Noted Date Diagnosed Date Malignant neoplasm of unspec ified part of unspecified bronchus or lung 05/31/2023 Anxiety 08/29/2017 Bilateral low back pain without sciatica 018 Carpal tunnel syndrome of right wrist 08/29/2017 Chronic obstructive pulmonary disease 08/29/2017 Overview (04/26/2024): [place] [facility] [place] Dom Frost- last ov 03/23/24 not controlled chg inhaler to Anoro cont albuerol add duo neb begin pulm rehab dep on supplemental oxygen Depression 08/29/2017 Family history of lung cancer 08/29/2017 Fatigue 08/29/2017 History of lung cancer 08/29/2017 History of tobacco use 08/29/2017 Hyperlipidemia 08/29/2017 Pure hypercholesterolemia 08/29/2017 Vitamin D deficiency 08/29/2017 Elevated blood pressure read ing without diagnosis of hypertension 08/29/2017 Resolved Problems Problem Noted Date Diagnosed Date Resolved Date Fracture of lateral orbital wall, left side, initial encounter for closed fracture 05/31/2023 Encounters Date Type Department Care Team Description 02/17/2025 Refill [facility] [address] [place] [address] Alin Ceja MD Medication Refill 01/28/2025 Refill [facility] [address] [place] [address] Cora Mullins, warehouse engineer Refill 01/20/2025 Refill [facility] [address] [facility] [place] [address] Alin Ceja MD Medication Refill 01/14/2025 Telephone [facility] [address] [place] [address] Cora Mullins RN Headache 01/03/2025 3:00 PM EDT Office Visit [facility] [address] [facility] [place] [address] Alin Ceja MD Acute maxillary sinusitis, recurrence not specified (Primary Dx); Benign essential hypertension; History of lung cancer 12/04/2024 11:00 AM EDT Office Visit [facility] [address] [facility] [place] [address] Alin Ceja MD Acute non-recurrent maxillary sinusitis (Primary Dx) 12/03/2024 Documentation [facility] [address] [facility] [place] [address] Alin Ceja MD 12/03/2024 Telephone [facility] [address] [facility] [place] [address] Cora Mullins, warehouse engineer Question from Last 3 Months Immunizations Immunization Administration Dates Next Due COVID-19 (Pre-05/16) Pfizer Vaccine, mRNA, PF ,10/07/2020 Pneumococcal polysaccharide PPSV23 01/17/2014 Td (adult) 5 Lf Tetanus Toxoid, PF, Adsorbed ,10/24/1999 Tdap 01/16/2024 Family History Medical History Relation Comments Lung cancer Brother 2 Hypertension Father Heart failure Mother Hyperlipidemia Sister 2 Hypertension Sister 2 Hypertension Sister 6 Stroke Sister 6 Lung cancer Sister 7 Colon cancer Sister 8 Hypertension Sister 8 Relation Status Comments Brother 1 (Age 54) cerebral hemmo rage Brother 2 (Age 74) at 74 y/o d/t lung cancer Brother 3 Alive Brother 4 Alive Father Mother (Age 87) chf Sister 1 Sister 2 Alive Sister 3 Alive Sister 4 Alive Sister 5 Alive Sister 6 Alive has had a stroke at 69 y/o Sister 7 (Age 52) at 52 y/o d/t lung cancer Sister 8 Alive Social History Tobacco Use Types Packs/Day Years Used Date Smoking Tobacco: Every Day Cigarettes 0.5 48.6 Started: 1973; Last attempted to quit: 2016 Smokeless Tobacco: Never Tobacco Cessation:Ready to Q uit: Not Asked; Counseling Given: Not Answered Comments:0-5 cigarettes QD Alcohol Use Standard Drinks/Week Comments No 0 (1 standard drink = 0.6 oz pur e alcohol) Education Answer Date Recorded Are you interested in more education? Not on arthur e 11/19/2022 Are you concerned about learning? Not on file 11/19/2022 No 11/19/2022 No 11/19/2022 Digital Access Answer Date Recorded No 12/18/2022 No 12/18/2022 Reliable internet access at home? Not on file 12/18/2022 Device with a working camera? Not on file Intimate Partner Violence Answer Date R ecorded Denied Basic Needs Not on file 06/12/2024 In the past 12 months have y ou been in a relationship with a person who hurts, threatens, or tries to control you? No 06/12/2024 Worried food would run out Not on file 06/12 In the past 12 months have y ou been in a relationship with a person who hurts, threatens, or tries to control you? No 06/12/2024 Comments No Sex and Gender Information Value Date Recorded Sex Assigned at Female 05/24/2023 4:12 PM EDT Legal Sex Female 9:53 PM EDT Gender Identity Female 05/24/2023 4:12 PM EDT Sexual Orientation Not on file Last Filed Vital Signs Vital Sign Reading Time Taken Comments Blood Pressure 150/90 01/03/2025 3:37 PM EDT Pulse 77 01/03/2025 2:42 PM EDT Temperature 36.4 C (97.5 F) 01/03/2025 2:42 PM EDT Respiratory Rate 20 01/03/2025 2:42 PM EDT Oxygen Saturation 94% 01/03/2025 2:42 PM EDT Inhaled Oxygen Concentration - - Weight 70.1 kg (154 lb 9.6 oz) 01/03/2025 2:42 P M EDT Height 162.4 cm (5' 3.94 ) 01/03/2025 2:42 PM ED T Body Mass Index 26.59 01/03/2025 2:42 PM EDT Plan of Treatment Upcoming Encounters Date Type Department Care Team (Late st Contact Info) Description 04/19/2025 2:00 PM EDT Office Visit [facility] [address] [facility] [place] [address] Alin Ceja MD [address] [place] [address] [email or web address] 07/10/2025 1:30 PM EST Office Visit [facility] [address] [facility] [place] [address] Alin Ceja MD [address] [place], [place] [id number] [email or web address] Health Maintenance Due Date Last Done Comments ZOSTER VACCINES (1 of 2) 1976 COLOGUARD 2002 FIT TEST 2002 FOBT 2002 SIGMOIDOSCOPY 2002 VIRTUAL COLONOSCOPY 2002 LUNG CANCER SCREENING (LDCT Only) 2007 PNEUMOCOCCAL VACCINES (50+ years) (2 of 2 - PCV) 01/17/2015 01/17/2014 RSV VACCINE (1 - Risk 60-74 years 1-dose series) 2017 COVID-19 VACCINE ( season) 2024 07/20/2021, 10/28/2020, 10/07/2020 DEPRESSION SCREENING 06/12/2025 06/12/2024, 06/12/20 24 BLOOD PRESSURE 07/05/2025 01/03/2025 CREATININE LEVEL 09/04/2025 09/04/2024, , 11/09/2023, Additional history exists POTASSIUM LEVEL 09/04/2025 09/04/2024, 10/23, 05/25/2023, Additional history exists SMOKING Hx and SMOKELESS TOBACCO SCREENING 01/03/2026 01/03/2025 MAMMOGRAM 03/19/2026 03/19/2024, 02/23, 02/23/2022, Additional history exists FOLLOW UP BONE DENSITY TESTING 08/01/2026 08/01/2024, 06/12/2024, 09/22/2018, Additional history exists SCREENING FOR DIABETES 09/04/2027 , 11/09/2023, 05/20/2022, Additional history exists COLONOSCOPY 10/20/2027 10/19/2022, 08/27/2011 COLORECTAL CANCER SCREENING 10/20/2027 LIPID PANEL 09/04/2029 09/04/2024, 08/25, 09/04/2024, Additional history exists Adult Td,Tdap Booster 01/15/2034 01/16/2024 , 01/17/2014, 10/24/1999 HEPATITIS C SCREENING Completed 09/26/2019, 020 OSTEOPOROSIS SCREENING INITIAL (ONE-TIME) Completed 08/01/2024, 06/12/2024, 09/22/2018, Additional history exists HEPATITIS A VACCINES Aged Out No long er eligible based on patient's age to complete this topic HIB VACCINES Aged Out No longer eligi ble based on patient's age to complete this topic MENINGOCOCCAL VACCINES (ACWY) Aged Out No longer eligible based on patient's age to complete this topic MENINGOCOCCAL VACCINES (B) Aged Out N o longer eligible based on patient's age to complete this topic Medical Devices Not on file Procedures Procedure Name Priority Date/Time Associated Diagnosis Comments OUTSIDE HDL Routine 09/04/2024 OUTSIDE GLUCOSE FASTING Routine 09/04/2024 OUTSIDE POTASSIUM LEVEL Routine 09/04/2024 OUTSIDE SERUM CREATININE LEVEL Routine 09/04/2024 DEXA SCAN Routine 08/01/2024 7:59 AM EST MAMMOGRAPHY Routine 03/19/2024 12:27 PM EDT COLONOSCOPY FOR RESULT ENTRY ONLY Routine 10/19/2022 HEPATITIS C ANTIBODY, QUALITATIVE Routine 09/26/2019 from Last 3 Months or Most Recently Relevant to Health Maintenance Results * Outside Potassium Level (09/04/2024) Potassium level - External 4.6 3.4 - 5.0 mmol/L Result [facility] Provider LAB BLOOD ORDERABLES Rachelle l Result * Outside Glucose,Fasting (09/04/2024) Glucose, fasting - External 93 65 - 99 mg/dL Result [facility] LAB BLOOD ORDERABLES Rachelle l Result * (ABNORMAL) Outside Serum Creatinine Level (09/04/2024) Creatinine, serum - External 0.63(A) 0.8 - 1.3 mg/dL Result [facility] LAB BLOOD ORDERABLES Rachelle l Result * Outside HDL (09/04/2024) HDL - External 59 40 - 80 mg/dL Result [facility] LAB BLOOD ORDERABLES Rachelle l Result * DEXA SCAN (08/01/2024 7:59 AM EST) Result [facility] Elvia BUNCH HEALTH MAINTENANCE Edited Result - Final * HM MAMMOGRAPHY FOR RESULT ENTRY ONLY (03/19/2024 12:27 PM EDT) Result [facility] Alin Ceja MD HEALTH MAINTENANCE Edited Res ult - Final * HM COLONOSCOPY FOR RESULT ENTRY ONLY (10/19/2022) Result [facility] Alin Ceja MD HEALTH MAINTENANCE Edited Res ult - Final * Hepatitis C antibody, qualitative (09/26/2019) Result [facility] Alin Ceja MD LAB BLOOD ORDERABLES Final Re sult from Last 3 Months or Most Recently Relevant to Health Maintenance Insurance [place] [facility] [place] & B Member Subscriber Plan / Payer (Ef fective 2014-Present) Name:Nadia English Member ID:[id number] Relation to Subscriber:Self Name:Nadia English Subscriber ID:[id number] Payer ID:[id number] Group ID:Not on file Type:Medicare Address: [facility] [employer] [facility] [address] [place] [phone] [facility] [place] [facility] A & [place] & B HEALTH MEDICARE PART A & B [facility] Care Teams Repair Order Clerk Relationship Specialty Start Date End Date Alin Ceja MD [address] [place] [address] [email or web address] PCP - General 05/12/17 Alin Ceja MD [address] [place] [address] [email or web address] Insurance Assigned Provider 10/29/23 Additional Source Comments The information contained in this document represents components of the legal health record. It is not the complete legal health record.[facility]
--- OUTSIDE RECORDS SUMMARY | 2025-02-27 16:12 | XMS_ITS | Patient Health Record ---
Author Organization [facility] Address [address] [place] [address] Care Team Providers Care Switch Operators Supervisor Name Role Phone Alin Ceja Primary Care Provider Unavailabl e Allergies No Known Allergies Reason For Referral No Information Medications Medication SIG (Take, Route, Frequency, Duration) Notes Start Date End Date Status Azithromycin 250 MG 2 tablet on the first day, then 1 tablet daily for 4 days Orally Once a day; Duration: 5 day(s) 02/23/2021 Not-Taking Promethazine-Codeine 6.25-10 MG/5ML 5 ml as needed Orally every 6 hrs 10/24/2021 Active predniSONE 10 MG [id number] Orally Once a day; Duration: 6 days 02/23/2021 Not-Taking Promethazine-Codeine 6.25-10 MG/5ML 5 ml Orally Q 8 hours prn cough 02/23/2021 Not-Taking Azithromycin 250 MG 2 tablet on the first day, then 1 tablet daily for 4 days Orally Once a day; Duration: 5 day(s) 03/06/2021 Not-Taking predniSONE 10 MG (21) 2 tablets with kota d or milk Orally Once a day; Duration: 7 days 12/05/2020 Not-Taking methylPREDNISolone 4 MG as directed Orally Not-Taking Montelukast Sodium 10 MG 1 tablet Orally Once a day; Duration: 90 days 11/26/2020 Not-Taking Famotidine 20 MG 1 tablet Orally Twice a day; Duration: 90 days 11/26/2020 Not-Taking predniSONE 10 MG [id number] Orally Once a day; Duration: 6 days 10/24/2021 Active Fexofenadine HCl 180 MG 1 tablet Orally Twice a day; Duration: 90 days 11/26/2020 Not-Taking Social History Tobacco [...] Allergic contact dermatitis caused by dye (disorder) (130403285) 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
--- OUTSIDE RECORDS SUMMARY | 2025-02-27 16:12 | XMS_ITS | Patient Health Record ---
Author Organization [facility] Address [address] [place] [address] Care Team Providers Care Access Manager Name Role Phone Alin Ceja MD Primary Care Provider Unavaila Lambert Briggs Jr Unavailable Allergies No Known Allergies Reason For Referral [...] Problem Status W/U Status Risk Notes Problem 200773521 Colon cancer screening (Z12.11) Active confirmed Problem 20740979 Irritable bowel syndrome, unspecified type (K58.9) Active confirmed Problem Condyloma (03755373) Condyloma (A63.0) Active confirmed Plan Of Treatment Future Test Test Name Order Date COLONOSCOPY 09/06/2022 Insurance Providers Payer Name Payer Address Payer Phone Subscriber Number Group Number Insured Name Patient Relationship to Insured Coverage Start Date Coverage End Date MEDICARE OF [place] [address] [place] [id number] ELYSE DORAN Self - patient is the insured [facility]ICAID [facility] [address] [place] [phone] [id number] ELYSE DORAN Self - patient is the insured Medical (General) History Medical History History ICD Code COPD Anxiety/depression Irritable bowel syndrome Colonoscopy in 2012, ten-year followup Hyperlipidemia Hypertension Surgical History Surgery Date(Month/Year) Left lower lobectomy, T1a N0 adenocarcin epi 2017
== END 2025-02-27 15:47 | disposition home or self-care (01) ==
LOC: HO.MRI 15:46
PROVIDERS: PCP Internal Medicine; Visit Provider Nurse Practitioner Family
DX: R51.9 Headache, unspecified (principal)
CPT/HCPCS: 70553; A9585

== ENCOUNTER → 2025-02-27 16:14 | Outpatient (BNV) | payer MEDICARE, MEDICAID, SELFPAY | PROVIDERS: PCP Internal Medicine; Visit Provider Radiology Diagnostic Radiology | DX: R51.9 Headache, unspecified (principal) | CPT/HCPCS: 70553 ==

== ENCOUNTER 2025-03-13 10:14 | Outpatient (REF) | payer MEDICARE, MEDICAID, SELFPAY ==
--- NOTE | ~2025-03-13 | XR_ITS ---
EXAMINATION: XR ANKLE, LEFT CLINICAL INFORMATION: S93.492A - Sprain of other ligament of left ankle, initial encounter COMPARISON: None available. TECHNIQUE: AP, lateral, and mortise views of the left ankle. FINDINGS: No fracture, dislocation, or suspicious bone lesion. Normal alignment. The mortise is intact. The talar dome is normal. Subtalar joints are intact. The calcaneus is normal. There is diffuse soft tissue swelling most prominent medially. No definite ankle joint effusion. XR/XR ankle LT min 3V IMPRESSION: Soft tissue swelling without definite fracture or dislocation. Electronically signed by: Vincenzo Cramer MD 03/13/2025 11:00 AM EDT
--- NOTE | ~2025-03-13 | XR_ITS ---
EXAMINATION: XR FOOT, LEFT CLINICAL INFORMATION: S93.492A - Sprain of other ligament of left ankle, initial encounter COMPARISON: None available. TECHNIQUE: AP, lateral, and oblique views of the left foot. FINDINGS: No fracture, dislocation, or suspicious bone lesion. No malalignment. Normal plantar arch. The hindfoot and midfoot appear normal. No soft tissue abnormalities. XR/XR foot LT 2V IMPRESSION: No acute findings of the left foot. Electronically signed by: Vincenzo Cramer MD 03/13/2025 11:01 AM EDT
== END 2025-03-13 10:15 | disposition home or self-care (01) ==
LOC: HO.HMGCX 10:14
PROVIDERS: PCP Internal Medicine; Visit Provider Physician Assistant
DX: S93.492A Sprain of other ligament of left ankle, initial encounter (principal); M25.472 Effusion, left ankle; W01.0XXA Fall on same level from slipping, tripping and stumbling without subsequent striking against object, initial encounter; Y92.008 Other place in unspecified non-institutional (private) residence as the place of occurrence of the external cause
CPT/HCPCS: 73610; 73620; 99212

== ENCOUNTER 2025-03-13 10:14 | Outpatient (AMB) | payer MEDICARE, MEDICAID, SELFPAY ==
[2025-03-13 10:18] VITALS: BP 134/82; PULSE 80; TEMP 36.6; O2SAT 94; BMI 26.6
--- NOTE | 2025-03-13 10:18 | MHC.OFFWIV ---
Intake Vital Signs 03/13/25 10:18 Height 5 ft 4 in Weight 155 lb BMI 26.6 BP 134/82 Blood Pressure Location Lt brachial Position Sitting Pulse 80 Pulse Source Pulse Oximeter Temp 97.9 F Temp Source Oral Pulse Oximetry (%) 94 Oxygen Delivery Method Room Air Intake Visit Reasons: EP-lt ankle pain & swollen Patient Tobacco Use Status: Current everyday Tobacco user Bill Sorter Required: No Allergies No Known Allergies Allergy (Verified 03/13/25 10:22) Do you need a note to return to daycare/school/sports/work: No HPI HPI Comments History of Present Illness Details Patient is a 69yo F who presents with L ankle/foot injury She had mechanical trip and fall Tuesday on her porch There was no HT or LOC She said that she rolled her L ankle + 8/10 pain to that area with bruising and swelling No hx of fx to LLE in the past Has tried elevation, ice, PATRIC wrap, tylenol, motrin and aleve without relief No pain elsewhere Denies CP or SOB PFSH Medical History AIN grade I HTN (hypertension) Hyperlipidemia IBS (irritable bowel syndrome) Anxiety and depression COPD (chronic obstructive pulmonary disease) Surgical History S/P lobectomy of lung H/O colonoscopy Social History Patient Tobacco Use Status: Current everyday Tobacco user Tobacco use type: Cigarette Cigarette Packs Per Day: 0.5 Cigarettes Per Day: 10 Review of Systems Const Denies chills, Denies fever(s) and Denies headache(s) ENT Denies headache(s) Card Denies chest pain, Denies syncope and Denies dyspnea Resp Denies dyspnea Musc Reports arthralgias, Reports joint swelling, Denies numbness and Denies tingling Skin/Breast Denies erythema, Reports skin pain and Reports skin swelling Neuro Denies syncope, Denies headache(s), Denies numbness and Denies tingling Physical Exam Exam Exam: General: Non-toxic, NAD. Speaking full sentences. Skin: Warm dry throughout. Moderate to large edema to L lateral malleoli of LLE. + blue/purple discoloration to L lateral ankle and proximal dorsal aspect of L foot. No other calf or ivy edema. Aside from foot and ankle, lower extremities are symmetrical in size and shape bilaterally Eye: EOMI Respiratory: No respiratory distress or stridor Cardiac: DP pulse intact. No calf tenderness. No pitting edema to ivy. MSK: No ttp L ankle or proximal tib/fib. + ttp L ankle at lateral malleolli and along proximal dorsal asepct of foot. No 5th metatarsal bone or digit ttp LLE. No medial malleoli TTP LLE. Neurology: Alert. No aphasia or facial droop. Psych: Good mood and affect Vital Signs: Last Vital Signs Temp 97.9 F 03/13/25 10:18 Pulse 80 03/13/25 10:18 BP 134/82 03/13/25 10:18 Pulse Ox 94 03/13/25 10:18 Oxygen Delivery Method Room Air 03/13/25 10:18 BMI result Body Mass Index 26.6 Assessment & Plan Assessment & Plan (1) Ankle sprain: Code(s): S93.409A - Sprain of unspecified ligament of unspecified ankle, initial encounter Qualifiers: Encounter type: initial encounter Involved ligament of ankle: other ligament Laterality: left Qualified Code(s): S93.492A - Sprain of other ligament of left ankle, initial encounter Plan: Patient seen and evaluated. XRay L foot: negative Xray L ankle: + edema no fx PATRIC wrap, walking boot and crutches provided Rest, Ice and elevation Naproxen for discomfort; avoid NSAID use with this medicine Ortho referral Discussed warning signs such as calf pain, worsening leg swelling, weakness/numbness, CP or SOB to go to ER Patient gave verbal understanding and had no additional questions or concerns at time of discharge All questions answered Orders: Orders XR ankle LT min 3V Today S93.492A - Sprain of other ligament of left ankle, initial encounter XR foot LT 2V Today S93.492A - Sprain of other ligament of left ankle, initial encounter Referrals Orthopedics Referral S93.492A - Sprain of other ligament of left ankle, initial encounter Medications: New naproxen 500 mg PO BID PRN 20 tabs 0RF pain Coding Level of Care Code Est Pt Level 3 (67096) Diagnoses Sprain of other ligament of left ankle, initial encounter S93.492A Encounter type: initial encounter Involved ligament of ankle: other ligament Laterality: left
--- OUTSIDE RECORDS SUMMARY | 2025-03-13 11:26 | XMS_ITS | Patient Health Record ---
Author Organization [facility] Address [address] [place] [address] Care Team Providers Care Dental Service Chief Name Role Phone Alin Ceja MD Primary [...] Problem Status W/U Status Risk Notes Problem 301354668 Colon cancer screening (Z12.11) Active confirmed Problem 90621394 Irritable bowel syndrome, unspecified type (K58.9) Active confirmed Problem Condyloma (88950062) Condyloma (A63.0) Active confirmed Plan Of Treatment Future Test Test Name Order Date COLONOSCOPY 09/06/2022 Insurance Providers Payer Name Payer Address Payer Phone Subscriber Number Group Number Insured Name Patient Relationship to Insured Coverage Start Date Coverage End Date MEDICARE OF [place] [address] [place] [id number] ELYSE DORAN Self - patient is the insured [facility]ICA[facility] [address] [place] [phone] [id number] ELYSE DORAN Self - patient is the insured Medical (General) History Medical History History ICD Code COPD Anxiety/depression Irritable bowel syndrome Colonoscopy in 2012, ten-year followup Hyperlipidemia Hypertension Surgical History Surgery Date(Month/Year) Left lower lobectomy, T1a N0 adenocarcin epi 2017
--- OUTSIDE RECORDS SUMMARY | 2025-03-13 11:26 | XMS_ITS | Patient Health Record ---
Author Organization [facility] Address [address] [place] [address] Care Team Providers Care Polyethylene Bag Machine Operator Name Role Phone Alin Ceja Primary Care [...] 6 hrs 10/24/2021 Active predniSONE 10 MG [id number] Orally Once a day; Duration: 6 days [...] 90 days 11/26/2020 Not-Taking predniSONE 10 MG [id number] Orally Once a day; Duration: 6 days [...] Allergic contact dermatitis caused by dye (disorder) (169799185) 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) [...] [place] [address] [place] [address] [id number] Nadia English Self - patient is the insured 4 [employer] [address] [place] [address] [id number] Nadia English Self - patient is the insured Medications Administered Medication Instructions Date of Administration Dosage Notes Depo Medrol 11/26/2020 40 mg Medical (General) History Surgical History Surgery Date(Month/Year)
--- OUTSIDE RECORDS SUMMARY | 2025-03-13 11:26 | XMS_ITS | Clinical Summary ---
Author Organization [facility] Address [address] [address] Phone Care Team Providers Care Auto Body Estimator Name Role Phone Alin Ceja MD Primary Care Provider Alin Ceja MD Unavailable [phone] Allergies Active Allergy Reactions Criticality Noted Date [...] pulmonary disease 08/29/2017 Overview (04/26/2024): Fol w [facility] pulm Dr. Dom Frost- last ov 03/23/24 [...] Encounters Date Type Department Care Team Description 03/12/2025 Telephone [facility] Internal Medicine [address] [place] [address] Cora Mullins, MARIXA Ankle Injury 02/28/2025 Orders Only [facility] [address] [facility] [place] [address] ProviderMark MD 02/17/2025 Refill [facility] Internal Medicine [address] [place] [address] Alin Ceja MD Medication Refill 01/28/2025 Refill [facility] Internal [facility] [address] [place] [address] Cora Mullins RN Medication Refill 01/20/2025 Refill [facility] Internal Medicine [address] [place] [address] Alin Ceja MD Medication Refill 01/14/2025 Telephone [facility] Internal Medicine [address] [address] Cora Mullins RN Headache 01/03/2025 3:00 PM EDT Office Visit [facility] Internal Medicine [address] [place] [address] Alin Ceja MD Acute maxillary sinusitis, recurrence not specified (Primary Dx); Benign essential hypertension; History of lung cancer from Last 3 Months Immunizations Immunization Administration [...] 48.6 Started: 1973; Last attempted to quit: 2015 Smokeless Tobacco: Never Tobacco Cessation:Ready to Q [...] Description 04/19/2025 2:00 PM EDT Office Visit [facility] Internal Medicine [address] [place] [address] Alin Ceja MD [address] [place] [address] [email or web address] 07/10/2025 1:30 PM EST Office Visit [facility] [place] Internal Medicine [address] [place] [address] Alin Ceja MD [address] [place] [address] [email or web address] Health Maintenance Due Date Last Done Comments [...] Name Priority Date/Time Associated Diagnosis Comments OUTSIDE MR HEAD/NECK REPORT ONLY Routine 02/27/2025 8:39 AM EDT OUTSIDE HDL Routine 09/04/2024 OUTSIDE GLUCOSE FASTING Routine 09/04/2024 OUTSIDE POTASSIUM LEVEL Routine 09/04/2024 OUTSIDE SERUM CREATININE LEVEL Routine 09/04/2024 DEXA SCAN Routine 08/01/2024 7:59 AM EST MAMMOGRAPHY Routine 03/19/2024 12:27 PM EDT COLONOSCOPY FOR RESULT ENTRY ONLY Routine 10/19/2022 HEPATITIS C ANTIBODY, QUALITATIVE Routine 09/26/2019 from Last 3 Months or Most Recently Relevant to Health Maintenance Results * Outside MR Head/Neck Report Only (02/27/2025 8:39 AM EDT) us Historical Provider MD JENSEN MR HEAD/NECK Final Re sult * Outside Potassium Level (09/04/2024) Potassium level - External 4.6 3.4 - 5.0 mmol/L Result [facility] Provider LAB BLOOD ORDERABLES Rachelle l Result * Outside Glucose,Fasting (09/04/2024) Glucose, fasting - External 93 65 - 99 mg/dL Result [facility] LAB BLOOD ORDERABLES Rachelle l Result * (ABNORMAL) Outside Serum Creatinine Level (09/04/2024) Pathologist [facility] Creatinine, serum - External 0.63(A) 0.8 - 1.3 mg/dL Result [facility] LAB BLOOD ORDERABLES Rachelle l Result * Outside HDL (09/04/2024) Pathologist [facility] HDL - External 59 40 - 80 mg/dL Result [facility] LAB BLOOD ORDERABLES Rachelle l Result * HM DEXA SCAN (08/01/2024 7:59 AM EST) Result [facility] Elvia BUNCH HEALTH MAINTENANCE Edited Result - Final * HM MAMMOGRAPHY FOR RESULT ENTRY ONLY (03/19/2024 12:27 PM EDT) Result [facility] Alin Ceja MD HEALTH MAINTENANCE Edited Res ult - Final * HM COLONOSCOPY FOR RESULT ENTRY ONLY (10/19/2022) Result [facility] Alin Ceja MD HEALTH MAINTENANCE Edited Res ult - Final * Hepatitis C antibody, qualitative (09/26/2019) Result [facility] Alin Ceja MD LAB BLOOD ORDERABLES Final Re sult from Last 3 Months or Most Recently Relevant to Health Maintenance Insurance [place]IC[place] PART [place] [facility] [place] PART A & B HEALTH MEDICARE PART A & B HEALTH MEDICARE PART A & B MEDICARE PART A & B HEALTH MEDICARE PART A & [facility] A & B [facility] Care Teams Auto Body Estimator Relationship Specialty Start Date End Date Alin Ceja MD [address] [place] [address] [email or web address] PCP - General 05/12/17 Alin Ceja MD [address] [place] [address] Insurance Assigned Provider 10/29/23 Additional Source Comments The information contained in this document represents components of the legal health record. It is not the complete legal health record.[facility]
== END 2025-03-13 12:28 | disposition home or self-care (01) ==
PROVIDERS: PCP Internal Medicine; Visit Provider Physician Assistant
DX: S93.492A Sprain of other ligament of left ankle, initial encounter (principal)

== ENCOUNTER → 2025-03-13 10:46 | Outpatient (BNV) | payer MEDICARE, MEDICAID, SELFPAY | PROVIDERS: PCP Internal Medicine; Visit Provider Radiology Diagnostic Radiology | DX: S90.02XA Contusion of left ankle, initial encounter (principal); M79.672 Pain in left foot | CPT/HCPCS: 73610; 73620 ==

== ENCOUNTER 2025-04-01 12:40 | Outpatient (REF) | payer MEDICARE, MEDICAID, SELFPAY ==
--- OUTSIDE RECORDS SUMMARY | 2025-04-01 14:51 | XMS_ITS | Encounter Summary ---
Author Organization [facility] Address [address] [facility] [address] [place] [address] Phone Care Team Providers Care Superintendent Meter Tests Name Role Phone Alin Ceja MD Primary Care Provider [phone] Alin Ceja MD Unavailable [phone] Reason for Referral * MRI/CAT Scan - Closed Specialty Diagnoses / Procedures Referred By Contac t Referred To Contact Radiology Procedures Outside MR Head/Neck Report Only [facility] Internal Medicine [address] [place] [address] Phone: tel: fax: Referral ID Status Reason Start Date Expiration Date Visits Re quested Visits Authorized [id number] Closed 02/28/2025 1 1 Encounter Details Date Type Department Care Team (Late st Contact Info) Description 02/28/2025 Orders Only [facility] Internal Medicine [address] [place] [address] Mark Gan MD [address] [place] [address] Social History Tobacco Use Types Packs/Day Years Used Date Smoking Tobacco: Every Day Cigarettes 0.5 48.7 Started: 1973; Last attempted to quit: 2015 Smokeless Tobacco: Never Comments:0-5 cigarettes QD Alcohol Use Standard Drinks/Week Comments No 0 (1 standard drink = 0.6 oz pur e alcohol) Education Answer Date Recorded Are you interested in more education? Not on artuhr e 11/19/2022 Are you concerned about learning? [...] PM EDT Sexual Orientation Not on file documented as of this encounter Plan of Treatment Upcoming Encounters Date Type Department Care Team (Late st Contact Info) Description 04/19/2025 2:00 PM EDT Office Visit [facility] Internal Medicine [address] [place] [address] Alin Ceja MD [address] [place] [address] 07/10/2025 1:30 PM EST Office Visit [facility] Internal Medicine [address] [place] [address] Alin Ceja MD [address] [place], [place] [id number] [email or web address] documented as of this encounter Procedures Procedure Name Priority Date/Time Associated Diagnosis Comments OUTSIDE MR HEAD/NECK REPORT ONLY Routine 02/27/2025 8:39 AM EDT documented in this encounter Results * Outside MR Head/Neck Report Only (02/27/2025 8:39 AM EDT) us Historical Provider MD JENSEN MR HEAD/NECK Final Re sult documented in this encounter Visit Diagnoses Not on filedocumented in this encounter Additional Health Concerns Assessment Noted Time PHQ-9 Depression Total Score: 9 06/12/20 1:40 PM EST PHQ-2 Depression Total Score: 3 06/12/20 1:40 PM EST documented as of this encounter Care Teams Superintendent Meter Tests Relationship Specialty Start Date End Date Alin Ceja MD [address] [place] [address] PCP - General 05/12/17 Alin Ceja MD [address] [place] [address] Insurance Assigned Provider 10/29/23 documented as of this encounter Additional Source Comments The information contained in this document represents components of the legal health record. It is not the complete legal health record.[facility]
--- OUTSIDE RECORDS SUMMARY | 2025-04-01 14:51 | XMS_ITS | Clinical Summary ---
Author Organization [facility] Address [address] [address] Phone Care Team Providers Care Radiologic Technology Program Director Name Role Phone Alin Ceja MD Primary Care Provider Alin Ceja MD Unavailable [phone] Allergies Active Allergy Reactions Criticality Noted Date Comments Lisinopril Cough 11/02/2024 Paroxetine Hcl 11/09/2016 Other reaction(s): couldnt sleep Medications cholecalciferol (VITAMIN D3) 5,000 unit capsule Take 5,000 Units by mouth daily. 02/26/20 17 Active ondansetron (ZOFRAN) 8 MG tabletIndications: Nausea Take 1 tablet (8 mg total) by mouth every 8 (eight) hours as needed for nausea. 12 tablet 12/15/19 24 Active fluticasone propionate (FLONASE) 50 mcg/actuation nasal sprayIndications:A llergic rhinitis, unspecified seasonality, unspecified trigger shake liquid and use 2 sprays in each nostril daily 16 g 12 04/30/20 24 Active ipratropium-albute roL (DUONEB) 0.5-3 mg (2.5 mg base)/3 mL nebulizer solution Take 3 mL by nebulization 3 (three) times a day. 05/11/20 24 Active ANORO ELLIPTA 62.5-25 mcg/actuation diskus inhaler Inhale 1 puff into the lungs every morning. 06/09/20 24 Active olopatadine (PATANOL) 0.1 % ophthalmic solutionIndication s:Allergic conjunctivitis of both eyes INSTILL 1 DROP IN EACH EYE TWICE DAILY 5 mL 08/01/19 25 Active nicotine (NICODERM CQ) 21 mg/24 hrIndications:Toba technical account executive use Place 1 patch onto the skin daily. 30 patch 09/18/19 25 Active Additional Information Patient not taking.Reported on 01/03/2025 levalbuterol (XOPENEX HFA) 45 mcg/actuation inhalerIndications :Chronic obstructive pulmonary disease INHALE 2 PUFFS INTO THE LUNGS EVERY 4 HOURS NEEDED FOR WHEEZING 45 g 5 10/23/19 25 Active Additional Information Patient not taking.Reported on 01/03/2025 SUMAtriptan (IMITREX) 100 MG tabletIndications: Migraines TAKE 1 TABLET(100 MG) BY MOUTH TWICE DAILY NEEDED FOR MIGRAINE 9 tablet 3 10/23/19 25 Active albuterol 90 mcg/actuation inhaler Inhale 2 puffs into the lungs 4 (four) times a day. 11/02/19 25 Active buPROPion (WELLBUTRIN XL) 150 MG ER 24 hr tabletIndications: Anxiety disorder, unspecified type,Depression, unspecified depression type Take 1 tablet (150 mg total) by mouth every morning. 30 tablet 11 11/28/19 25 Active cetirizine (ZYRTEC) 10 MG tablet Take 10 mg by mouth daily. Active MULTIVITAMIN ORAL Take 1 capsule by mouth daily. Active ascorbic acid, vitamin C, (VITAMIN C) 1000 MG tablet Take 1,000 mg by mouth daily. Active ZINC ORAL Take 50 mg by mouth daily. Active CALCIUM ORAL Take 1 capsule by mouth daily. Active QUEtiapine (SEROQUEL) 25 MG tabletIndications: Anxiety disorder, unspecified type,Depression, unspecified depression type TAKE 2 TABLETS(50 MG) BY MOUTH EVERY NIGHT AT BEDTIME 180 tablet 2 01/22/20 25 Active clonazePAM (KLONOPIN) 1 MG tabletIndications: Anxiety disorder TAKE 1 TABLET(1 MG) BY MOUTH THREE TIMES DAILY 90 tablet 2 01/22/20 25 Active lisinopril (PRINIVIL,ZESTRIL) 30 MG tablet Take 1 tablet (30 mg total) by mouth daily. 90 tablet 01/30/20 25 Active omega-3 acid ethyl esters (LOVAZA) 1 gram capsuleIndications :Hyperlipidemia Take 2 capsules (2 g total) by mouth 2 (two) times a day. 360 capsule 3 02/19/20 25 Active Active Problems Problem Noted Date Diagnosed Date Malignant neoplasm of unspec ified part of unspecified bronchus or lung 05/31/2023 Anxiety 08/29/2017 Bilateral low back pain without sciatica 018 Carpal tunnel syndrome of right wrist 08/29/2017 Chronic obstructive pulmonary disease 08/29/2017 Overview (04/26/2024): Fol w [facility] pulm Dr. Dom Frost- last ov 03/23/24 [...] Encounters Date Type Department Care Team Description 03/13/2025 Orders Only [facility] Internal Medicine [address] [place] [address] Mark Gan MD 03/12/2025 Telephone [facility] Internal Medicine [address] [place] [address] Cora Mullins, MARIXA Ankle Injury 02/28/2025 Orders Only [facility] Internal Medicine [address] [facility] [place] [address] Mark Gan MD 02/17/2025 Refill [facility] Internal Medicine [address] [facility] [place] [address] Alin Ceja MD Medication Refill 01/28/2025 Refill [facility] Internal Medicine [address] [facility] [place] [address] Cora Mullins, senior interior designer Refill 01/20/2025 Refill [facility] Internal Medicine [address] [place] [address] Alin Ceja MD Medication Refill 01/14/2025 Telephone [facility] Internal Medicine 40 [facility] [place] [address] Cora Mullins RN Headache 01/03/2025 3:00 PM EDT Office Visit [facility] Internal Medicine [address] [place] [address] Alin Ceja MD Acute maxillary sinusitis, recurrence [...] Description 04/19/2025 2:00 PM EDT Office Visit [facility] Internal Medicine [address] [place] [address] Alin Ceja MD [address] [place], [place] [id number] 07/10/2025 1:30 PM EST Office Visit [facility] Internal Medicine [address] [facility] [place] [address] Alin Ceja MD 40 [facility] [place] [address] [email or web address] Health Maintenance Due Date Last Done Comments ZOSTER VACCINES (1 of 2) 1976 COLOGUARD 2002 FIT TEST 2002 FOBT 2002 SIGMOIDOSCOPY 2002 VIRTUAL COLONOSCOPY 2002 LUNG CANCER SCREENING (LDCT Only) 2007 PNEUMOCOCCAL VACCINES (50+ years) (2 of 2 - PCV) 01/17/2015 01/17/2014 RSV VACCINE (1 - Risk 60-74 years 1-dose series) 2017 INFLUENZA VACCINE (#1) 2025 COVID-19 VACCINE (4 - season) 2025 07/20/2021, 10/28/2020, 10/07/2020 DEPRESSION SCREENING 06/12/2025 06/12/2024, [...] Name Priority Date/Time Associated Diagnosis Comments OUTSIDE XR EXTREMITY LOWER REPORT ONLY Routine 03/13/2025 1:58 PM EDT OUTSIDE XR EXTREMITY LOWER REPORT ONLY Routine 03/13/2025 12:53 PM EDT OUTSIDE MR HEAD/NECK REPORT ONLY Routine 02/27/2025 8:39 AM EDT OUTSIDE HDL Routine 09/04/2024 OUTSIDE GLUCOSE FASTING Routine 09/04/2024 OUTSIDE POTASSIUM LEVEL Routine 09/04/2024 OUTSIDE SERUM CREATININE LEVEL Routine 09/04/2024 HM DEXA SCAN Routine 08/01/2024 7:59 AM EST HM MAMMOGRAPHY Routine 03/19/2024 12:27 PM EDT COLONOSCOPY FOR RESULT ENTRY ONLY Routine 10/19/2022 HEPATITIS C ANTIBODY, QUALITATIVE Routine 09/26/2019 from Last 3 Months or Most Recently Relevant to Health Maintenance Results * Outside XR Extremity Lower Report Only (03/13/2025 1:58 PM EDT) us Historical Provider MD JENSEN XR LOWER EXTREMITY Fi nal Result * Outside XR Extremity Lower Report Only (03/13/2025 12:53 PM EDT) Result [facility] Provider MD JENSEN XR LOWER EXTREMITY Fi nal Result * Outside MR Head/Neck Report Only (02/27/2025 8:39 AM EDT) Result [facility] MD JENSEN MR HEAD/NECK Final Re sult * Outside Potassium Level (09/04/2024) Potassium level - External 4.6 3.4 - 5.0 mmol/L Result [facility] LAB BLOOD ORDERABLES Rachelle l Result * Outside Glucose,Fasting (09/04/2024) Glucose, fasting - External 93 65 - 99 mg/dL Result [facility] LAB BLOOD ORDERABLES Rachelle l Result * (ABNORMAL) Outside Serum Creatinine Level (09/04/2024) Creatinine, serum - External 0.63(A) 0.8 - 1.3 mg/dL Result [facility] LAB BLOOD ORDERABLES Rachelle l Result * Outside HDL (09/04/2024) HDL - External 59 40 - 80 mg/dL Result [facility] LAB BLOOD ORDERABLES Rachelle l Result * HM DEXA SCAN (08/01/2024 7:59 AM EST) Result [facility] Elvia BUNCH HEALTH MAINTENANCE Edited Result - Final * HM MAMMOGRAPHY FOR RESULT ENTRY ONLY (03/19/2024 12:27 PM EDT) Result [facility] Alin Ceja MD HEALTH MAINTENANCE Edited Res ult - Final * HM COLONOSCOPY FOR RESULT ENTRY ONLY (10/19/2022) Result [facility] Alin Ceja MD HEALTH MAINTENANCE Edited Res ult - Final * Hepatitis C antibody, qualitative (09/26/2019) us Alin Ceja MD LAB BLOOD ORDERABLES Final Re sult from Last 3 Months or Most Recently Relevant to Health Maintenance Insurance MEDICARE PART A & B HEALTH MEDICARE PART A & [place]ARE PART [place] & [place] MED[place] PART A & B MEDICARE PART A & [facility] MEDICARE PART A & [facility] & [facility] Care Teams Radiologic Technology Program Director Relationship Specialty Start Date End Date Alin Ceja MD [address] [place] [address] PCP - General 05/12/17 Alin Ceja MD [address] [place] [address] Insurance Assigned Provider 10/29/23 Additional Source Comments The information contained in this document represents components of the legal health record. It is not the complete legal health record.[facility]
--- OUTSIDE RECORDS SUMMARY | 2025-04-01 14:51 | XMS_ITS | Encounter Summary ---
Author Organization [facility] Address [address] [facility] [address] [place] [address] Phone Care Team Providers Care Industrial Cleaning Technician Name Role Phone Alin Ceja MD Primary Care Provider [phone] Alin Ceja MD Unavailable [phone] Encounter Details Date Type Department Care Team (Late st Contact Info) Description 03/13/2025 Orders Only [facility] Internal Medicine [address] [place] [address] Provider, MD Mark [address] [place], [place] [id number] Social History Tobacco Use Types Packs/Day Years [...] Visit [facility] Internal Medicine [address] [place] [address] Alin Ceja MD [address] [place] [address] 07/10/2025 1:30 PM EST Office Visit [facility] Internal Medicine [address] [place] [address] Alin Ceja MD [address] [place] [address] documented as of this encounter Procedures Procedure Name Priority Date/Time Associated Diagnosis Comments OUTSIDE XR EXTREMITY LOWER REPORT ONLY Routine 03/13/2025 1:58 PM EDT OUTSIDE XR EXTREMITY LOWER REPORT ONLY Routine 03/13/2025 12:53 PM EDT documented in this encounter Results * Outside XR Extremity Lower Report Only (03/13/2025 1:58 PM EDT) us Historical Provider MD JENSEN XR LOWER EXTREMITY Fi nal Result * Outside XR Extremity Lower Report Only (03/13/2025 12:53 PM EDT) us Historical Provider MD JENSEN XR LOWER EXTREMITY Fi nal Result documented in this encounter Visit Diagnoses Not on filedocumented in this encounter Additional Health Concerns Assessment Noted Time PHQ-9 Depression Total Score: 9 06/12/20 24 1:40 PM EST PHQ-2 Depression Total Score: 3 06/12/20 1:40 PM EST documented as of this encounter Care Teams Industrial Cleaning Technician Relationship Specialty Start Date End Date Alin Ceja MD [address] [place] [address] PCP - General 05/12/17 Alin Ceja MD [address] [place] [address] Insurance Assigned Provider 10/29/23 documented as of this encounter Additional Source Comments The information contained in this document represents components of the legal health record. It is not the complete legal health record.[facility]
--- OUTSIDE RECORDS SUMMARY | 2025-04-01 14:51 | XMS_ITS | Patient Health Record ---
Author Organization [facility] Address [address] [place] [address] Care Team Providers Care Carpentry Supervisor Name Role Phone Alin Ceja MD Primary Care Provider Unavaila Lambert Briggs Jr Unavailable [phone] Allergies No Known Allergies Reason For Referral [...] Problem Status W/U Status Risk Notes Problem [id number] Colon cancer screening (Z12.11) Active confirmed Problem [id number] Irritable bowel syndrome, unspecified type (K58.9) Active confirmed Problem Condyloma (80983577) Condyloma (A63.0) Active confirmed Plan Of Treatment Future Test Test Name Order Date COLONOSCOPY 09/06/2022 Insurance Providers Payer Name Payer Address Payer Phone Subscriber Number Group Number Insured Name Patient Relationship to Insured Coverage Start Date Coverage End Date MEDICARE OF [place] [address] [place] [address] [id number] ELYSE DORAN Self - patient is the insured [facility] OF [facility] [address] [place] [address] [phone] [id number] ELYSE DORAN Self - patient is the insured Medical (General) History Medical History History ICD Code COPD Anxiety/depression Irritable bowel syndrome Colonoscopy in 2012, ten-year followup Hyperlipidemia Hypertension Surgical History Surgery Date(Month/Year) Left lower lobectomy, T1a N0 adenocarcin epi 2017
--- OUTSIDE RECORDS SUMMARY | 2025-04-01 14:51 | XMS_ITS | Patient Health Record ---
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) Active confirmed Problem Pruritic disorders (404616855) Chronic pruritus (L29.9) Active confirmed Plan Of Treatment Future Test Test Name Order Date [employer] PYLORI [employer], EIA, STOOL (H-PY JAVIER) 11/26/2020 Skin Patch test--attach the patch test t emplate 11/26/2020 Insurance Providers Payer Name Payer Address Payer Phone Subscriber Number Group Number Insured Name Patient Relationship to Insured Coverage Start Date Coverage End Date Medicare [place] [address] [place] [phone] [id number] Nadia English Self - patient is the insured 4 [employer] [address] [place] [phone] [id number] Nadia English Self - patient is the insured Medications Administered Medication Instructions Date of Administration Dosage Notes Depo Medrol 11/26/2020 40 mg Medical (General) History Surgical History Surgery Date(Month/Year)
== END 2025-04-01 12:41 | disposition home or self-care (01) ==
LOC: HO.MAMMO 12:40
PROVIDERS: PCP Internal Medicine; Visit Provider Internal Medicine
DX: Z12.31 Encounter for screening mammogram for malignant neoplasm of breast (principal)
CPT/HCPCS: 77063; 77067

== ENCOUNTER → 2025-04-01 13:00 | Outpatient (BNV) | payer MEDICARE, MEDICAID, SELFPAY | PROVIDERS: PCP Internal Medicine; Visit Provider Internal Medicine | DX: Z12.31 Encounter for screening mammogram for malignant neoplasm of breast (principal) | CPT/HCPCS: 77063; 77067 ==

== ENCOUNTER 2025-05-02 14:04 | Outpatient (AMB) | payer MEDICARE, MEDICAID, SELFPAY ==
[2025-05-02 14:13] VITALS: BP 132/82; PULSE 81; O2SAT 95; BMI 26.1
--- NOTE | 2025-05-02 14:13 | A.OFFVIS_ITS ---
Vital Signs 05/02/25 14:13 Height 5 ft 4 in Weight 152 lb BMI 26.1 BP 132/82 Blood Pressure Location Lt brachial Position Sitting Pulse 81 Pulse Source Pulse Oximeter Pulse Oximetry (%) 95 Oxygen Delivery Method Nasal Cannula Oxygen Flow Rate 2 Intake Visit Reasons: COPD Allergies No Known Allergies Allergy (Verified 05/02/25 14:18) HPI HPI COPD: Details: 70-year-old lady, active 40+ pack-year smoker followed for severe supplemental oxygen dependent, on POC, COPD. Patient has been using Anoro, duo nebs, and albuterol MDI with good control of his symptoms. She denies any recent exacerbations. [facility] Medical History AIN grade I HTN (hypertension) Hyperlipidemia IBS (irritable bowel syndrome) Anxiety and depression COPD (chronic obstructive pulmonary disease) Surgical History S/P lobectomy of lung H/O colonoscopy Social History Patient Tobacco Use Status: Current everyday Tobacco user Tobacco use type: Cigarette Cigarette Packs Per Day: 0.5 Cigarettes Per Day: 10 Review of Systems Const Denies daytime sleepiness, Denies excessive sweating, Denies fatigue, Denies fever(s), Denies lethargy, Denies malaise, Denies night sweats, Denies snoring and Denies weight loss Eyes Denies blurry vision and Denies itchy eyes ENT Denies nasal congestion, Denies post nasal drip, Denies sinus pain, Denies sinus pressure and Denies other ( Thrush) Card Denies chest pain, Denies pedal edema, Denies dyspnea, Denies orthopnea and Denies paroxysmal nocturnal dyspnea Resp Denies cough, Denies hemoptysis, Denies excessive phlegm production, Denies dyspnea, Denies snoring and Denies wheezing GI Denies abdominal pain and Denies heartburn Musc Denies myalgias, Denies arthralgias and Denies joint swelling Skin/Breast Denies rash Neuro Denies memory loss and Denies seizure-like activity Psych Denies abnormal sleep pattern, Denies anxiety and Denies memory loss Endo Denies excessive sweating, Denies fatigue and Denies heat intolerance Zac/Lymph Denies easy bruising Aller/Immun Denies itchy eyes, Denies seasonal rhinorrhea and Denies wheezing Physical Exam Vital Signs: Last Vital Signs Pulse 81 05/02/25 14:13 BP 132/82 05/02/25 14:13 Pulse Ox 95 05/02/25 14:13 Oxygen Delivery Method Nasal Cannula 05/02/25 14:13 Oxygen Flow Rate 2 05/02/25 14:13 BMI result Body Mass Index 26.1 Const General: no acute distress and alert Nutritional Appearance: not obese Orientation/consciousness: Other orientation findings ( oriented) HEENT Head: Yes atraumatic Eyes General: appearance normal, both eyes and all related structures Sclerae: sclerae normal EOM: EOMs intact bilaterally Neck Neck: Yes supple Lymphatic: no lymphadenopathy noted Resp Effort & Inspection: normal respiratory effort and no use of accessory muscles Auscultation: clear to auscultation bilaterally Cardio Rate: regular rate Rhythm: regular rhythm Heart sounds: no gallops, no murmurs and no rubs Skin General skin exam: other ( warm) Extrem General: No clubbing, No cyanosis and No edema Assessment & Plan Assessment & Plan (1) COPD (chronic obstructive pulmonary disease): Code(s): J44.9 - Chronic obstructive pulmonary disease, unspecified Category: Medical Plan: Well controlled on current regimen of Anoro, duo nebs, and albuterol MDI. Continue current regimen. (2) Supplemental oxygen dependent: Code(s): Z99.81 - Dependence on supplemental oxygen Category: Medical Plan: Continue supplemental oxygen to maintain O2 saturation above 88%. (3) Personal history of nicotine dependence: Code(s): Z87.891 - Personal history of nicotine dependence Category: Medical Plan: Patient continues to follow-up with [facility] lung cancer screening program. Coding Level of Care Code Est Pt Level 4 (11539) Diagnoses COPD (chronic obstructive pulmonary disease) J44.9 Supplemental oxygen dependent Z99.81 Personal history of nicotine dependence Z87.891
== END 2025-05-02 14:32 | disposition home or self-care (01) ==
LOC: HO.HPS 14:04
PROVIDERS: PCP Internal Medicine; Visit Provider Internal Medicine Pulmonary Disease
DX: J44.9 Chronic obstructive pulmonary disease, unspecified (principal); Z99.81 Dependence on supplemental oxygen; Z87.891 Personal history of nicotine dependence
CPT/HCPCS: 99214

== ENCOUNTER → 2025-05-02 14:04 | Outpatient (BNVA) | payer MEDICARE, MEDICAID, SELFPAY | PROVIDERS: PCP Internal Medicine; Visit Provider Internal Medicine Pulmonary Disease | DX: J44.9 Chronic obstructive pulmonary disease, unspecified (principal); Z87.891 Personal history of nicotine dependence; Z99.81 Dependence on supplemental oxygen | CPT/HCPCS: 99212 ==